=== PATIENT | female | born 1990 | race Caucasian/White ===

== ENCOUNTER 2020-02-10 12:57 | Outpatient (REF) | payer OTHER, SELFPAY ==
[2020-02-10 13:17] LABS: COVID-19 Test Negative (Negative); IDNOW Serial# 55D5AD1C
== END 2020-02-10 12:58 | disposition home or self-care (01) ==
LOC: HO.EMPCOV 12:57
PROVIDERS: Visit Provider Internal Medicine
DX: Z20.828 Contact with and (suspected) exposure to other viral communicable diseases (principal)
CPT/HCPCS: 87635; C9803

== ENCOUNTER 2020-03-14 13:42 | Outpatient (REF) | payer OTHER, SELFPAY ==
[2020-03-14 13:59] LABS: COVID-19 Test Negative (Negative)
== END 2020-03-14 13:43 | disposition home or self-care (01) ==
LOC: HO.EMPCOV 13:42
PROVIDERS: PCP Nurse Practitioner Family; Visit Provider Internal Medicine
DX: Z20.828 Contact with and (suspected) exposure to other viral communicable diseases (principal)
CPT/HCPCS: 87635; C9803

== ENCOUNTER 2020-08-25 12:52 | Emergency (ER) | payer OTHER, SELFPAY ==
--- NOTE | ~2020-08-25 | XR_ITS ---
EXAMINATION: XR ANKLE, LEFT CLINICAL INFORMATION: Injury, pain and swelling. COMPARISON: None TECHNIQUE: AP, lateral, and mortise views of the left ankle. FINDINGS: There is lateral malleolar soft tissue swelling without any visible acute fracture, dislocation or subluxation. The ankle mortise and subtalar joints are normal. There is a calcaneal heel tiny spur. XR/XR ankle LT min 3V IMPRESSION: Wall calcaneal heel tiny spur. No acute fracture or dislocation. Moderate lateral malleolar soft tissue swelling suggestive of ligamentous injury.
[2020-08-25 13:35] VITALS: BP 129/83; PULSE 98; RESP 18; TEMP 37.1; O2SAT 96; BMI 34.0
--- NOTE | 2020-08-25 13:47 | ED_ITS ---
HPI - Extremity Injury (Lower) General Chief Complaint: Extremity Injury, Lower Stated Complaint: ankle injury Time Seen by Provider: 08/25/20 13:40 Source: patient Mode of arrival: ambulatory Limitations: no limitations History of Present Illness HPI Narrative: Patient is a 29-year-old female with no significant past medical history who injured her left ankle while walking on a treadmill. This occurred just prior to arrival. Patient is using ice with some relief. Patient was able to ambulate immediately after the accident but with pain. She is able to use will lightly extend and flex the ankle but with pain. Patient also complaining of swelling and bruising. Denies any other injuries, she did not fall and hit her head. Related Data Home Medications Medication Instructions Recorded Confirmed loratadine 10 mg tablet 10 mg PO DAILY 07/30/20 omeprazole magnesium 20 mg 20 mg PO DAILY 07/30/20 tablet,delayed release Previous Rx's Medication Instructions Recorded erythromycin 5 mg/gram (0.5 %) eye 1 appl OPHTHALMIC (EYE) QID 7 Days 07/30/20 ointment #3.5 g Allergies Allergy/AdvReac Type Severity Reaction Status Date / Time sulfadiazine Allergy Unknown rash Verified 05/07/19 00:00 No Known Allergies Allergy Unverified 12/08/19 16:03 Review of Systems Review of Systems: Yes all other systems are reviewed and are negative FORMERLY [facility] Past Medical History Medical History Hydronephrosis of right kidney Surgical History History of appendectomy History of mandibular surgery Family History Family History Father Liver cancer Mother Lung cancer Social History Social History Advance Directives: No Advance Directives Information Provided: No Patient : No Physical Exam Vital Signs: Vital Signs: Last Vital Signs Temp 98.8 F 08/25/20 13:35 Pulse 98 08/25/20 13:35 Resp 18 08/25/20 13:35 BP 129/83 08/25/20 13:35 Pulse Ox 96 08/25/20 13:35 Body Mass Index 34.0 Const: General: cooperative, healthy appearing, comfortable and no acute distress Nutritional Appearance: average body habitus Orientation/consciousness: patient oriented x3 Limitations: no limitations HENMT: Head: Yes normal to inspection, Yes normocephalic and Yes atraumatic Eyes: General: appearance normal, both eyes and all related structures Resp: Effort & Inspection: normal respiratory effort and able to speak in c omplete sentences Neuro: General: patient oriented x3 Extrem: Ankle/foot/toe images: 1. Edema lateral malleolus, TTP posterior lateral malleolus. Ecchymosis lateral malleolus Course Course Course Narrative: Patient is a 29-year-old female with no significant past medical history who injured her left ankle while walking on a treadmill. VSS. Physical exam revealed edema left lateral malleolus and tenderness to palpation of left lateral posterior malleolus. Will get ankle x-ray. Will give pain co ntrol, Motrin. Reevaluation(s) Reevaluation #1: XR/XR ankle LT min 3V IMPRESSION: Wall calcaneal heel tiny spur. No acute fracture or dislocation. Moderate lateral malleolar soft tissue swelling suggestive of ligamentous injury. Will wrap ankle and discharge with ortho follow up. Time: 14:04 MDM - Extremity Injury (Lower) Medical Records Attestation: I reviewed the patient's medical records. Imaging Data ankle x-ray left: Attestation: I personally reviewed and interpreted this imaging study as follows: My impression: Lateral malleolus sprain Radiologist's impression: [address] [address]HSxw ReportSigned Patient: Adrienne Moore EMR#: [id number]: [id number] Acct:[id number]/Sex: 29 / FADM Date: 08/25/20Loc: [email or web address] Dr: Ordering Physician: Alyssa Parra PA-C Date of Service: 08/25/20 Procedure(s): XR ankle LT min 3V Accession Number(s): [id number] cc: Alyssa Parra PA-C~ EXAMINATION: XR ANKLE, LEFT CLINICAL INFORMATION: Injury, pain and swelling. COMPARISON: None TECHNIQUE: AP, lateral, and mortise views of the left ankle. FINDINGS: There is lateral malleolar soft tissue swelling without any visible acute fracture, dislocation or subluxation. The ankle mortise and subtalar joints are normal. There is a calcaneal heel tiny spur. XR/XR ankle LT min 3V IMPRESSION: Wall calcaneal heel tiny spur. No acute fracture or dislocation. Moderate lateral malleolar soft tissue swelling suggestive of ligamentous injury. Dictated By:BANG GALLEGO MDSigned By:<Electronically signed by BANG GALLEGO MD in OV>08/25/20 1357 DD/ 1354TD/TT: Manager Endoscopy: [facility] [place] Discharge Plan Discharge Clinical Impression: Left ankle sprain Qualifiers: Encounter type: initial encounter Involved ligament of ankle: calcaneofibular ligament Qualified Code(s): S93.412A - Sprain of calcaneofibular ligament of left ankle, initial encounter Patient Disposition: Home, Self-Care Instructions: Ankle Sprain (ED) Additional Instructions: Please be sure to ice your ankle several times per day. You can also use ibuprofen for pain control, you may add in acetaminophen if necessary. Please be sure to spread out the doses of each medication by 3 hours. Please be sure to follow-up with your primary care doctor or an orthopedic doctor, I have attached our orthopedic doctor office information below. Prescriptions: No Action erythromycin 5 mg/gram (0.5 %) ointment 1 appl ophthalmic (eye) QID 7 Days Qty: 3.5 RF: 0 loratadine [Claritin] 10 mg tablet 10 mg PO DAILY RF: 0 omeprazole magnesium [Prilosec OTC] 20 mg tablet,delayed release (DR/EC) 20 mg PO DAILY RF: 0 Referrals: Kobe Castro MD [Physician] - 1 week (if not getting better)
[2020-08-25] MEDS: Ibuprofen 600 MG TABLET PO (14:18)
== END 2020-08-25 14:24 | disposition home or self-care (01) ==
PROVIDERS: Emergency Provider Emergency Medicine Emergency Medical Services; PCP Nurse Practitioner Family
DX: S93.412A Sprain of calcaneofibular ligament of left ankle, initial encounter (principal); M25.572 Pain in left ankle and joints of left foot; M25.472 Effusion, left ankle; Y93.A1 Activity, exercise machines primarily for cardiorespiratory conditioning; Y92.9 Unspecified place or not applicable; Y99.9 Unspecified external cause status; Z79.899 Other long term (current) drug therapy
CPT/HCPCS: 73610; 99283

== ENCOUNTER 2020-09-08 11:11 | Outpatient (REF) | payer OTHER, SELFPAY ==
[2020-09-08 13:56] LABS: Alanine Aminotransferase 32 U/L (0-31); Albumin Level 4.6 g/dL (3.5-5.0); Alkaline Phosphatase 83 U/L (39-117); Anion Gap 14 (12-20); Aspartate Amino Transferase 27 U/L (5-31); Bilirubin Total 1.1 mg/dL (0.0-1.0); Blood Urea Nitrogen 13 mg/dL (9-16); Calcium 9.6 mg/dL (8.4-10.2); Carbon Dioxide 25 mmol/L (22-29); Chloride 104 mmol/L (96-108); Cholesterol 157 mg/dL; Estimated Glomerular Filt Rate > 60; Glucose Fasting 82 mg/dL (60-99); HDL Cholesterol 36 mg/dL; LDL Cholesterol Calculated 107 mg/dl; Potassium 4.6 mmol/L (3.3-5.1); Sodium 138 mmol/L (135-145); Total Protein 8.2 g/dL (6.5-8.0); Triglycerides 72 mg/dL
[2020-09-08 14:17] LABS: TSH reflex Free T4 1.25 uIU/mL (0.32-4.0)
== END 2020-09-08 11:12 | disposition home or self-care (01) ==
LOC: HO.HMGCLDS 11:11
PROVIDERS: PCP Nurse Practitioner Family; Visit Provider Nurse Practitioner Family
DX: Z00.00 Encounter for general adult medical examination without abnormal findings (principal)
CPT/HCPCS: 36415; 80053; 80061; 84443

== ENCOUNTER 2020-12-20 14:28 | Outpatient (REF) | payer OTHER, SELFPAY ==
[2020-12-20 16:12] LABS: MANUAL DIFF FLAG NO
[2020-12-20 16:23] LABS: Basophils Percent Auto 0.4 % (0-2); Eosinophils Absolute Auto 0.5 X10*3/uL (0.0-0.4); Eosinophils Percent Auto 4.3 % (0-4); Hematocrit 39.3 % (37-47); Hemoglobin 13.5 g/dl (12.0-16.0); Imm Gran Abs Auto 0.04 X10*3/uL (0.00-0.03); Imm Gran Pct Auto 0.4 % (0.0-0.4); Lymphocytes Absolute Auto 2.7 X10*3/uL (1.2-4.9); Lymphocytes Percent Auto 25.4 % (20-40); Mean Corpuscular HGB Conc 34.4 g/dl (31.0-35.0); Mean Corpuscular Volume 87.3 fL (80-98); Monocytes Absolute Auto 0.8 X10*3/uL (0.1-1.2); Monocytes Percent Auto 7.8 % (2-11); Neutrophils Absolute Auto 6.6 X10*3/uL (2.0-8.3); Neutrophils Percent Auto 61.7 % (45-73); Platelet Count 237 X10*3/uL (160-400); Red Cell Distribution Width 12.8 % (11.0-16.0); White Blood Count 10.7 X10*3/uL (4.8-10.8)
[2020-12-20 16:49] LABS: Alanine Aminotransferase 21 U/L (0-31); Albumin Level 4.4 g/dL (3.5-5.0); Alkaline Phosphatase 72 U/L (39-117); Anion Gap 12 (12-20); Aspartate Amino Transferase 17 U/L (5-31); Bilirubin Total 0.4 mg/dL (0.0-1.0); Blood Urea Nitrogen 13 mg/dL (9-16); Calcium 9.3 mg/dL (8.4-10.2); Carbon Dioxide 25 mmol/L (22-29); Chloride 105 mmol/L (96-108); Estimated Glomerular Filt Rate > 60; Glucose Random 80 mg/dL (60-115); Lipase 70 U/L (8-78); Potassium 4.1 mmol/L (3.3-5.1); Sodium 138 mmol/L (135-145)
[2020-12-20 17:10] LABS: TSH reflex Free T4 2.59 uIU/mL (0.32-4.0)
== END 2020-12-20 14:29 | disposition home or self-care (01) ==
LOC: HO.HMGCLDS 14:28
PROVIDERS: PCP Nurse Practitioner Family; Visit Provider Nurse Practitioner Family
DX: R10.13 Epigastric pain (principal); R00.2 Palpitations
CPT/HCPCS: 36415; 80053; 83690; 84443; 85025

== ENCOUNTER 2020-12-24 18:36 | Outpatient (REF) | payer OTHER, SELFPAY ==
[2020-12-24 19:14] LABS: COVID-19 Test Negative (Negative)
== END 2020-12-24 18:37 | disposition home or self-care (01) ==
LOC: HO.LAB 18:36
PROVIDERS: PCP Nurse Practitioner Family; Visit Provider Internal Medicine
DX: Z20.822 Contact with and (suspected) exposure to COVID-19 (principal)
CPT/HCPCS: 36415; 87635

== ENCOUNTER 2020-12-29 18:59 | Outpatient (REF) | payer OTHER, SELFPAY ==
[2020-12-30 08:19] LABS: OBS Int Ctl Valid YES
[2020-12-30 08:20] LABS: OBS1 NEGATIVE (NEGATIVE); OBS2 NEGATIVE (NEGATIVE); OBS3 NEGATIVE (NEGATIVE)
== END 2020-12-29 19:00 | disposition home or self-care (01) ==
LOC: HO.LNP 18:59
PROVIDERS: Visit Provider Nurse Practitioner Family
DX: R10.13 Epigastric pain (principal)
CPT/HCPCS: 82270; 87338

== ENCOUNTER 2020-12-29 19:01 | Outpatient (REF) | payer OTHER, SELFPAY | END 2020-12-29 19:02 | disposition home or self-care (01) | LOC: HO.LNP 19:01 | PROVIDERS: Visit Provider Nurse Practitioner Family | DX: Z13.89 Encounter for screening for other disorder (principal) ==

== ENCOUNTER → 2021-01-25 13:57 | Outpatient (REF) | payer OTHER, SELFPAY ==
--- NOTE | 2021-01-25 14:05 | ECG_ITS ---
Hook-up date: 2021-01-25 14:16:00 Duration: 47:59:00 Test Indications: PALPITATIONS Medications: 386177 QRS complexes 1 Ventricular ectopics which represent <1 % of total QRS comp. 2 Supraventricular ectopics which represent <1 % of total QRS comp. * Paced QRS complexs which represent % of total QRS comp. VENTRICULAR ECTOPY 1 Isolated 0 Bigeminal Cycles 0 Couplets 0 Runs 0 Beats in Runs * Beats LONGEST at * BPM at :: -- * Beats FASTEST at * BPM at :: -- SUPRAVENTRICULAR ECTOPY 2 Isolated 0 Couplets 0 Runs 0 Beats in Runs * Beats LONGEST at * BPM at :: -- * Beats FASTEST at * BPM at :: -- HEART RATES 44 MIN at 06:21:40 2021-01-27 68 AVG 148 MAX at 13:13:43 2021-01-27 LONGEST RR 1.5040 secs at 07:55:00 2021-01-27 S-T LEVELS Channel 1 - 128 mm at 14:16:00 2021-01-25 - 128 mm at 14:16:00 2021-01-25 Channel 2 - 128 mm at 14:16:00 2021-01-25 - 128 mm at 14:16:00 2021-01-25 Channel 3 - 128 mm at 03:33:51 -- - 128 mm at 03:33:51 Basic rhythm Normal sinus rhythm No long pause or profound bradycardia Frequent Sinus bradycardia , 34 % of time HR < 60 bpm No dangerous dysrhythm periods Patient reported symptoms correlated with NSR Referred By: Yair Aguilera Overread By: CASSIA XIAO MD
== END ==
LOC: HO.CARD 13:57
PROVIDERS: Visit Provider Nurse Practitioner Family
DX: R00.2 Palpitations (principal)
CPT/HCPCS: 93225; 93226

== ENCOUNTER 2021-09-21 08:28 | Outpatient (REF) | payer OTHER, SELFPAY | END 2021-09-21 08:29 | disposition home or self-care (01) | LOC: HO.LAB 08:28 | PROVIDERS: PCP Nurse Practitioner Family; Visit Provider Nurse Practitioner Family | DX: Z13.89 Encounter for screening for other disorder (principal) ==

== ENCOUNTER 2021-09-27 08:34 | Outpatient (REF) | payer OTHER, SELFPAY ==
[2021-09-27 08:57] LABS: MANUAL DIFF FLAG NO
[2021-09-27 09:00] LABS: Basophils Percent Auto 0.3 % (0-2); Eosinophils Absolute Auto 0.1 X10*3/uL (0.0-0.4); Eosinophils Percent Auto 1.4 % (0-4); Hematocrit 38.1 % (37.0-47.0); Imm Gran Abs Auto 0.03 X10*3/uL (0.00-0.03); Imm Gran Pct Auto 0.3 % (0.0-0.4); Lymphocytes Absolute Auto 2.3 X10*3/uL (1.2-4.9); Lymphocytes Percent Auto 24.4 % (20-40); Mean Corpuscular HGB Conc 34.1 g/dl (31.0-35.0); Mean Corpuscular Volume 87.8 fL (80.0-98.0); Mean Platelet Volume 10.1 fL (9.4-12.3); Monocytes Absolute Auto 0.5 X10*3/uL (0.1-1.2); Monocytes Percent Auto 5.8 % (2-11); Neutrophils Absolute Auto 6.2 x10*3/uL (2.0-8.3); Neutrophils Percent Auto 67.8 % (45-73); Platelet Count 217 X10*3/uL (160-400); Red Blood Count 4.34 X10*6/uL (4.20-5.50); White Blood Count 9.2 X10*3/uL (4.8-10.8)
[2021-09-27 09:25] LABS: Alanine Aminotransferase 24 U/L (0-31); Albumin Level 4.3 g/dL (3.5-5.0); Alkaline Phosphatase 70 U/L (39-117); Anion Gap 11 (12-20); Aspartate Amino Transferase 21 U/L (5-31); Bilirubin Total 0.5 mg/dL (0.0-1.0); Blood Urea Nitrogen 15 mg/dL (9-16); Calcium 9.3 mg/dL (8.4-10.2); Carbon Dioxide 26 mmol/L (22-29); Chloride 104 mmol/L (96-108); Estimated Glomerular Filt Rate > 60; Glucose Random 115 mg/dL (60-115); Sodium 137 mmol/L (135-145); Total Protein 7.8 g/dL (6.5-8.0)
[2021-09-27 09:46] LABS: TSH reflex Free T4 1.15 uIU/mL (0.32-4.0)
[2021-09-27 10:28] LABS: Cortisol Random 7.9 ug/dL
[2021-10-01 15:26] LABS: Adrenocorticotropic Hormone 22 pg/mL (6-50)
[2021-10-01 18:22] LABS: Glutamic acid decarboxylase Ab <5 IU/mL (<5)
[2021-10-05 00:06] LABS: 21 Hydroxylase Antibody NEGATIVE (NEGATIVE)
[2021-10-09 16:52] LABS: Aldosterone/Renin Ratio 1.8 Ratio (0.9-28.9); Plasma Renin Activity 3.28 ng/mL/h (0.25-5.82)
== END 2021-09-27 08:35 | disposition home or self-care (01) ==
LOC: HO.LAB 08:34
PROVIDERS: PCP Nurse Practitioner Family; Visit Provider Nurse Practitioner Family
DX: E27.40 Unspecified adrenocortical insufficiency (principal)
CPT/HCPCS: 36415; 80053; 82024; 82088; 82533; 83519; 84443; 85025; 86341

== ENCOUNTER 2022-02-16 11:57 | Emergency (ER) | payer OTHER, SELFPAY ==
[2022-02-16 12:00] VITALS: PULSE 78; RESP 18; BMI 30.2
--- NOTE | 2022-02-16 12:03 | ED_ITS ---
HPI - Medical Clearance General Chief complaint: Body Fluid Exposure Stated complaint: blood exposure at work Time Seen by Provider: 02/16/22 12:03 Source: patient Mode of arrival: ambulatory Limitations: no limitations History of Present Illness HPI Narrative: Patient is a 31 year old assigned female at with a history of kidney stones presenting to the emergency department today after a blood exposure. Patient states that she was performing continual bladder irrigation when blood splashed up and into her eye. Patient states that she would like exposure screening but does not want any prophylaxis at this time. Patient denies any dizziness, lightheadedness, abdominal pain, nausea, vomiting, fever, chills, blurry vision, double vision, loss of vision, chest pain, difficulty breathing, shortness of breath, back pain, night sweats, pain with urination, increased urinary frequency, increased urinary urgency, blood in her urine or stool, syncope or a near syncopal episode, recent trauma or falls, bowel incontinence, bladder incontinence, bowel retention, bladder retention, or any other complaints at this time. Place: work Associated Symptoms: denies other symptoms Treatments Prior to Arrival: other (eye irrigation) Related Information Home Medications Medication Instructions Recorded Confirmed Bacillus coagulans 800 million cell PO 08/27/20 09/17/21 cell tablet (Digestive Advantage Probiotics-Prebiotic) multivitamin,tx-minerals 1 cap PO DAILY 08/27/20 09/17/21 (Multi-Vitamin HP/Minerals capsule) Allergies Allergy/AdvReac Type Severity Reaction Status Date / Time sulfadiazine Allergy Unknown rash Verified 11/26/21 15:09 Review of Systems Constitutional: Constitutional: Reports no additional constitutional complaints, Denies chills, Denies fever(s) and Denies night sweats Eyes: Eyes: Reports no additional eye complaints, Denies blurry vision, Denies change in vision, Denies diplopia, Denies eye discharge, Denies loss of vision and Denies eye pain ENT: Denies dizziness Cardiovascular: Cardiovascular: Reports no additional cardiovascular complaints, Denies chest pain, Denies lightheadedness, Denies Loss of Consciousness and Denies dyspnea Respiratory: Respiratory: Reports no additional respiratory complaints and Denies dyspnea Gastrointestinal: Gastrointestinal: Reports no additional gastrointestinal complaints, Denies abdominal pain, Denies melena, Denies hematochezia, Denies change in bowel habits and Denies change in stool character Genitourinary: Genitourinary: Denies hematuria, Denies urinary frequency, Denies dysuria, Denies urinary incontinence, Denies urinary hesitancy and Denies urinary urgency Musculoskeletal: Musculoskeletal: Reports no additional musculoskeletal complaints, Denies numbness and Denies tingling Neurologic: Denies dizziness, Denies loss of vision, Denies numbness and Denies tingling Psychiatric: Psychiatric: Reports no additional psychiatric complaints Endocrine: Endocrine: Reports no additional endocrine complaints Hematologic/Lymphatic: Hematologic/Lymphatic: Reports no additional hematologic/lymphatic complaints Allergic/Immunologic: Allergic/Immunologic: Reports no additional allergic/immunologic complaints FORMERLY [facility] Past Medical History Attestation statement: The following information was validated with the patient. Source: old records reviewed Medical History Hydronephrosis of right kidney Surgical History History of appendectomy History of mandibular surgery Family History Family History Father Liver cancer Mother Lung cancer Mental health disorder Paternal Uncle Substance use disorder Social History Social History Housing: Apartment Alcohol intake: current Alcohol intake frequency: a few times a month Patient Tobacco Use Status: Former Tobacco user e-Cigarette/Vaping Use: Never Used Second Hand Smoke Exposure: No Advance Directives: No Advance Directives Information Provided: No service: No Current occupational status: employed Current occupation: [employer] – [place] Current occupational exposures/hazards: Yes Cognitive needs: No Hearing needs: No Vision needs: No Physical Exam Vital Signs: Vital Signs: Last Vital Signs Pulse 78 02/16/22 12:00 Resp 18 02/16/22 12:00 BMI result Body Mass Index 30.2 Const: General: cooperative, no acute distress, alert and awake Nutritional Appearance: well nourished Orientation/consciousness: patient oriented x3 Limitations: no limitations HEENT: Head: Yes normal to inspection and Yes atraumatic Ears: hearing grossly normal bilaterally and external ears normal General nose exam: Normal external nose present, no nasal discharge noted and no epistaxis Face and sinus: Yes normal facial exam, No abrasion and No laceration Mouth: Normal oral and palatal mucosa present, no drooling and no muffled voice Eyes: General: appearance normal, both eyes and all related structures Periorbital: periorbital findings normal Eyelids: Yes eyelids normal Conjunctivae: conjunctivae normal Pupils: Equal, round and reactive pupils present EOM: EOMs intact bilaterally Neck: Neck: Yes normal visual inspection, Yes full ROM and Yes no lymphadenopathy Chest: Chest palpation & inspection: normal inspection of the chest Resp: Effort & Inspection: normal respiratory effort and able to speak in complete sentences Auscultation: clear to auscultation bilaterally Cardio: Rate: regular rate Rhythm: regular rhythm GI: Inspection: Yes normal to inspection Neuro: General: patient oriented x3 and moves all extremities Cranial nerves: Yes Equal, round and reactive pupils present Cognition (Neuro): normal cognition Motor exam (neuro): 5/5 motor strength present throughout Sensory Exam: Normal double simultaneous stimulation for sensation Coordination: [id number] test normal Extrem: General: Yes normal to inspection, Yes full ROM and Yes capillary refill normal Psych: Appearance: grossly normal Mental Status: mental status grossly normal Affect: normal affect Attitude: cooperative Thought process: Normal thought process present Thought content: Normal thought content present Insight: Good insight present (Psych) MDM - Medical Clearance MDM Narrative Medical decision making narrative: Patient is a 31 year old assigned female at with a history of kidney stones presenting to the emergency department today after an exposure. Patient's physical exam was unremarkable. Patient's blood work is pending. I explained my physical exam findings to the patient. I answered all questions asked by the patient. I stressed the importance of the patient taking her medication as prescribed. I stressed the importance of the patient following up with her primary care provider and work connection. I stressed the importance of the patient returning to the emergency department immediately if her symptoms were to worsen or if she were to develop any dizziness, shortness of breath, difficulty breathing, chest pain, blurry vision, loss of vision, nausea, vomiting, abdominal pain, fever, chills, back pain, or any other complaints. Patient verbalized agreement and understanding with this treatment plan and discharge. Medical Records Attestation: I reviewed the patient's medical records. Discharge Plan Discharge Clinical Impression: Exposure to blood Patient Disposition: Home, Self-Care Instructions: Body Substance Exposure (ED) Additional Instructions: Follow up with your primary care provider and work connection. Return to the emergency department immediately if your symptoms worsen or if you develop any dizziness, shortness of breath, difficulty breathing, chest pain, blurry vision, loss of vision, nausea, vomiting, abdominal pain, fever, chills, back pain, or any other complaints. Prescriptions: No Action Digestive Advantage Probio-Pre 800 million cell tablet PO Multi-Vitamin HP/Minerals Capsule 1 cap PO DAILY Referrals: [facility] [Provider Group] Yair Aguilera FNP-ANKIT [Primary Care Provider] - Interventions: ED Discharge Assessment Last Done: 02/16/22 12:17 Discharge Date/Time: 02/16/22 12:18 Print Language: Lithuanian
[2022-02-16 12:46] LABS: Alanine Aminotransferase 24 U/L (0-31); Albumin Level 4.3 g/dL (3.5-5.0); Alkaline Phosphatase 69 U/L (39-117); Aspartate Amino Transferase 21 U/L (5-31); Bilirubin Direct < 0.2 mg/dL (0.0-0.5); Bilirubin Total 0.4 mg/dL (0.0-1.0)
[2022-02-17 09:46] LABS: HBc Num1 0.29 S/CO (0.00-0.79); HIV AB/AG Nonreactive (Nonreactive); Hepatitis A Antibody IgM 0.18 Index (0-0.79); Hepatitis B Core Antibody Nonreactive (Nonreactive); ~HepC Num1 0.13 S/CO (0.00-0.79); ~Hepatitis A Antibody IgM Nonreactive (Nonreactive); ~Hepatitis B Surface Antibody REACTIVE (Nonreactive); ~Hepatitis C Antibody Nonreactive (Nonreactive)
[2022-02-17 09:48] LABS: HBsAGNum1 0.41 S/CO (0.00-0.99); Hepatitis B Surface Antigen Negative (Negative)
== END 2022-02-16 12:18 | disposition home or self-care (01) ==
PROVIDERS: Physician Assistant Medical; Emergency Provider Emergency Medicine; PCP Nurse Practitioner Family
DX: Z20.9 Contact with and (suspected) exposure to unspecified communicable disease (principal); Z79.899 Other long term (current) drug therapy
CPT/HCPCS: 36415; 80076; 86704; 86706; 86709; 86803; 87340; 87389; 99282; 99283

== ENCOUNTER → 2022-02-20 15:46 | Outpatient (BNVA) | payer OTHER, SELFPAY | PROVIDERS: PCP Nurse Practitioner Family | DX: Z13.89 Encounter for screening for other disorder (principal) | CPT/HCPCS: 99211; 99213 ==

== ENCOUNTER → 2022-04-18 13:46 | Outpatient (BNVA) | payer OTHER, SELFPAY | PROVIDERS: PCP Nurse Practitioner Family | DX: Z13.89 Encounter for screening for other disorder (principal) | CPT/HCPCS: 36415; 84450; 84460; 87389; 99211 ==

== ENCOUNTER → 2022-06-24 12:19 | Outpatient (BNVA) | payer OTHER, SELFPAY | PROVIDERS: PCP Nurse Practitioner Family | DX: Z13.89 Encounter for screening for other disorder (principal) | CPT/HCPCS: 36415; 84450; 84460; 86803; 87389; 99211 ==

== ENCOUNTER 2022-07-12 10:24 | Outpatient (REF) | payer OTHER, SELFPAY ==
[2022-07-12 11:37] LABS: Alanine Aminotransferase 17 U/L (0-31); Albumin Level 4.3 g/dL (3.5-5.0); Alkaline Phosphatase 73 U/L (39-117); Anion Gap 12 (12-20); Aspartate Amino Transferase 16 U/L (5-31); Bilirubin Total 0.8 mg/dL (0.0-1.0); Blood Urea Nitrogen 12 mg/dL (9-16); Calcium 9.4 mg/dL (8.4-10.2); Carbon Dioxide 25 mmol/L (22-29); Chloride 107 mmol/L (96-108); Estimated Glomerular Filt Rate > 60; Glucose Random 90 mg/dL (60-115); Potassium 4.5 mmol/L (3.3-5.1); Sodium 139 mmol/L (135-145); Total Protein 7.8 g/dL (6.5-8.0)
[2022-07-12 11:53] LABS: TSH reflex Free T4 1.89 uIU/mL (0.32-4.0)
== END 2022-07-12 10:25 | disposition home or self-care (01) ==
LOC: HO.HMGCLDS 10:24
PROVIDERS: PCP Nurse Practitioner Family; Visit Provider Physician Assistant
DX: L29.8 Other pruritus (principal); T50.905A Adverse effect of unspecified drugs, medicaments and biological substances, initial encounter; Z77.21 Contact with and (suspected) exposure to potentially hazardous body fluids; R20.2 Paresthesia of skin; R60.9 Edema, unspecified
CPT/HCPCS: 36415; 80053; 84443

== ENCOUNTER 2022-10-23 15:25 | Outpatient (AMB) | payer OTHER, SELFPAY ==
[2022-10-23 15:31] VITALS: BP 130/84; PULSE 101; O2SAT 98; BMI 35.9
--- NOTE | 2022-10-23 15:31 | A.OFFPC_ITS ---
Vital Signs 10/23/22 15:31 Height 5 ft 1 in Weight 190 lb 2 oz BMI 35.9 BP 130/84 Blood Pressure Location Rt brachial Position Sitting Pulse 101 H Pulse Source Pulse Oximeter Pulse Oximetry (%) 98 Oxygen Delivery Method Room Air Intake Visit Reasons: Anxiety/Insomnia Allergies amoxicillin [From Augmentin] Allergy (Intermediate, Verified 10/23/22 17:19) Itching clavulanic acid [From Augmentin] Allergy (Intermediate, Verified 10/23/22 17:19) Itching sulfadiazine Allergy (Unknown, Verified 10/23/22 17:19) rash Medication List - Last Reconciled 10/23/22 by JORGE Meadows-ANKIT Bacillus coagulans (Digestive Advantage Probiotics-Prebiotic) cells PO multivitamin,tx-minerals (Multi-Vitamin HP/Minerals capsule) 1 cap PO DAILY Tobacco use date assessed: 10/23/22 Dental Screening Dental Screen Date: 10/23/22 Did you have a dental visit in the last 12 months?: Yes Did you have a dental problem in the last 6 months where you did not have access to dental care?: No Was dental information given to patient?: Patient has dentist HPI Anxiety/Insomnia HPI Details Pt reports increased anxiety and insomnia. She reports recently finding out that her is cheating on her. Her and his new partner work in the same organization as pt. Pt needs FMLA filled out to be out of work starting 10/22 through 12/20, will fill this out. She is currently seeing a therapist. Will send short duration of ativan. Educated pt on risk of addiction, this is not a long-term med. Pt understands that they can not drive while taking this med, share this med, and to only take as prescribed. Denies any SI and HI. Pt reports that her family is very supportive. [facility]LY [facility] Medical History Hydronephrosis of right kidney Surgical History History of appendectomy History of mandibular surgery Family History Father Liver cancer Mother Lung cancer Mental health disorder Paternal Uncle Substance use disorder Social History Housing: Apartment Alcohol intake: current Alcohol intake frequency: a few times a month Patient Tobacco Use Status: Former Tobacco user e-Cigarette/Vaping Use: Never Used Second Hand Smoke Exposure: No service: No Current occupational status: employed Current occupation: [employer] [place] Current occupational exposures/hazards: Yes Cognitive needs: No Hearing needs: No Vision needs: No Questionnaire Thrive Questionnaire Date Thrive assessed: 11/26/21 ILSA-7 AMB Questionnaire ILSA-7 Date ILSA - 7 assessed: 11/26/21 Source: Developed by Drs. Osei Hackett, Bina Killian, Sudhir Montgomery and colleagues, with an educational km from [employer]. Review of Systems Const Reports as per HPI Physical exam (Primary Care) Vital Signs: Last Vital Signs Pulse 101 H 10/23/22 15:31 BP 130/84 10/23/22 15:31 Pulse Ox 98 10/23/22 15:31 Oxygen Delivery Method Room Air 10/23/22 15:31 BMI result Body Mass Index 35.9 Tobacco/Smoking Status: Tobacco use Status Tobacco use date assessed 10/23/22 10/23/22 15:36 Patient Tobacco Use Status Former Tobacco user 10/23/22 15:36 e-Cigarette/Vaping Use Never Used 10/23/22 15:36 Thrive Assessment: Date of Thrive Assessment Date Thrive assessed 11/26/21 10/23/22 15:36 Const General: cooperative Nutritional Appearance: obese Orientation/consciousness: patient oriented x3 Resp Effort & Inspection: normal respiratory effort Auscultation: clear to auscultation bilaterally Cardio Rate: regular rate Rhythm: regular rhythm Heart sounds: S1 normal heart sound present and S2 normal heart sound present Neuro General: patient oriented x3 Psych Appearance: grossly normal Mental Status: mental status grossly normal Speech and movement: Normal speech and movement present Affect: normal affect Attitude: cooperative Thought process: Normal thought process present Thought content: Normal thought content present Insight: Good insight present (Psych) Judgement: Good judgement present (Psych) Assessment and Plan Assessment & Plan (1) Anxiety and depression: Code(s): F41.9 - Anxiety disorder, unspecified; F32.A - Depression, unspecified Plan The patient agreed to the use of a medical diagnostic radiographer for this encounter. Scribed for JORGE Rivas-ANKIT by Mary Schultz, medical diagnostic radiographer, on 10/23/2022 at 15:50 EST. Medications: New lorazepam 0.5 mg PO BID PRN 40 tabs 0RF anxiety 20 days Coding Level of Care Code Est Pt Level 3 (82725) Diagnoses Anxiety and depression F41.9; F32.A
== END 2022-10-23 15:58 | disposition home or self-care (01) ==
PROVIDERS: PCP Nurse Practitioner Family; Visit Provider Nurse Practitioner Family
DX: F41.9 Anxiety disorder, unspecified (principal); F32.A Depression, unspecified
CPT/HCPCS: 99213

== ENCOUNTER 2022-11-05 13:25 | Outpatient (REF) | payer OTHER, SELFPAY ==
[2022-11-06 05:19] LABS: HBS Num1 321.91 mIU/mL (0-7.99); HBsAGNum1 0.39 S/CO (0.00-0.99); HIV AB/AG Nonreactive (Nonreactive); HIV Num 1 0.08 S/CO (0.00-0.99); Hepatitis B Surface Antigen Negative (Negative); ~HepC Num1 0.08 S/CO (0.00-0.79); ~Hepatitis B Surface Antibody REACTIVE (Nonreactive); ~Hepatitis C Antibody Nonreactive (Nonreactive)
[2022-11-07 04:12] LABS: Syphilis Screen Nonreactive (Nonreactive)
== END 2022-11-05 13:26 | disposition home or self-care (01) ==
LOC: HO.LAB 13:25
PROVIDERS: PCP Nurse Practitioner Family; Visit Provider Obstetrics & Gynecology
DX: Z20.2 Contact with and (suspected) exposure to infections with a predominantly sexual mode of transmission (principal)
CPT/HCPCS: 36415; 86706; 86780; 86803; 87340; 87389

== ENCOUNTER 2022-11-27 10:54 | Outpatient (AMB) | payer OTHER, SELFPAY ==
[2022-11-27 11:02] VITALS: BP 138/90; PULSE 93; O2SAT 98; BMI 35.2
--- NOTE | 2022-11-27 11:02 | A.OFFPC_ITS ---
Vital Signs 11/27/22 11:02 Height 5 ft 1 in Weight 186 lb 2 oz BMI 35.2 BP 138/90 H Blood Pressure Location Lt brachial Position Sitting Pulse 93 Pulse Source Pulse Oximeter Pulse Oximetry (%) 98 Oxygen Delivery Method Room Air Intake Visit Reasons: PE Allergies amoxicillin [From Augmentin] Allergy (Intermediate, Verified 11/27/22 11:04) Itching clavulanic acid [From Augmentin] Allergy (Intermediate, Verified 11/27/22 11:04) Itching sulfadiazine Allergy (Unknown, Verified 11/27/22 11:04) rash Medication List - Last Reconciled 11/27/22 by AKOSUA Meadows Bacillus coagulans (Digestive Advantage Probiotics-Prebiotic) cells PO lorazepam 0.5 mg PO BID PRN 20 days multivitamin,tx-minerals (Multi-Vitamin HP/Minerals capsule) 1 cap PO DAILY Tobacco use date assessed: 11/27/22 Dental Screening Dental Screen Date: 11/27/22 Did you have a dental visit in the last 12 months?: Yes Did you have a dental problem in the last 6 months where you did not have access to dental care?: No Was dental information given to patient?: Patient has dentist HPI PE HPI Details Pt is here for a PE. Will order labs. 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 Denies chest pain, shortness of breath, headache, dizziness, and blurred vision. [facility] Medical History Hydronephrosis of right kidney Surgical History History of appendectomy History of mandibular surgery Family History Father Liver cancer Mother Lung cancer Mental health disorder Paternal Uncle Substance use disorder Social History Housing: Apartment Alcohol intake: current Alcohol intake frequency: a few times a month Patient Tobacco Use Status: Current everyday Tobacco user Cigarettes Per Day: 8 e-Cigarette/Vaping Use: Never Used Second Hand Smoke Exposure: Yes service: No Current occupational status: employed [place] [employer] [place] Current occupational exposures/hazards: Yes Cognitive needs: No Hearing needs: No Vision needs: No Questionnaire Thrive Questionnaire Date Thrive assessed: 11/26/21 ILSA-7 AMB Questionnaire ILSA-7 Date ILSA - 7 assessed: 11/26/21 Source: Developed by Drs. Osei Hackett, Bina Killian, Sudhir Montgomery and colleagues, with an educational km from [employer]. Review of Systems Const Denies chills and Denies fever(s) Eyes Denies blurry vision ENT Denies vertigo, Denies dizziness and Denies sore throat Card Denies chest pain at rest, Denies chest pain with activity, Denies diaphoresis, Denies dyspnea and Denies dyspnea on exertion Resp Denies cough, Denies dyspnea, Denies dyspnea on exertion and Denies wheezing GI Denies abdominal pain, Denies melena, Denies hematochezia, Denies constipation, Denies diarrhea and Denies loose stools Denies hematuria Musc Denies numbness and Denies tingling Skin/Breast Denies lesions Neuro Denies vertigo, Denies dizziness, Denies numbness and Denies tingling Psych Denies anxiety, Denies depression, Denies homicidal ideation, Denies suicidal ideation and Denies other (substance abuse) Aller/Immun Denies wheezing Physical exam (Primary Care) Vital Signs: Last Vital Signs Pulse 93 11/27/22 11:02 BP 138/90 H 11/27/22 11:02 Pulse Ox 98 11/27/22 11:02 Oxygen Delivery Method Room Air 11/27/22 11:02 BMI result Body Mass Index 35.2 Tobacco/Smoking Status: Tobacco use Status Tobacco use date assessed 11/27/22 11/27/22 11:06 Patient Tobacco Use Status Current everyday Tobacco 11/27/22 11:06 e-Cigarette/Vaping Use Never Used 11/27/22 11:06 Thrive Assessment: Date of Thrive Assessment Date Thrive assessed 11/26/21 11/27/22 11:06 Const General: cooperative Nutritional Appearance: well nourished Orientation/consciousness: patient oriented x3 HENMT Head: Yes normal to inspection, Yes normocephalic and Yes atraumatic Ears: TM's normal bilaterally Eyes General: appearance normal, both eyes and all related structures Alignment and Position: alignment normal and position normal Neck Neck: Yes normal visual inspection and Yes no lymphadenopathy Thyroid: Thyroid normal Resp Effort & Inspection: normal respiratory effort Auscultation: clear to auscultation bilaterally Cardio Rate: regular rate Rhythm: regular rhythm Heart sounds: S1 normal heart sound present, S2 normal heart sound present and no murmurs GI Palpation (GI): Soft to palpation and nontender Auscultation: normal bowel sounds Skin Rashes: no rashes Neuro General: patient oriented x3, moves all extremities, no focal motor deficits and deep tendon reflexes 2+ bilaterally Romberg Test: Negative Psych Appearance: grossly normal Mental Status: mental status grossly normal Speech and movement: Normal speech and movement present Affect: normal affect Attitude: cooperative Thought process: Normal thought process present Thought content: Normal thought content present Insight: Good insight present (Psych) Judgement: Good judgement present (Psych) Assessment and Plan Assessment & Plan (1) Physical exam: Code(s): Z. - Encounter for general adult medical examination without abnormal findings Plan: Labs ordered Plan The patient agreed to the use of a medical management specialist for this encounter. Scribed for JORGE Rivas-ANKIT by Mary Schultz medical management specialist, on 11/27/2022 at 11:10 EST. Orders: Orders Complete Blood Count Auto Diff Today Z00.00 - Encounter for general adult medical examination without abnormal findings Comprehensive [place]. Panel Fast Today Z00.00 - Encounter for general adult medical examination without abnormal findings TSH reflex Free T4 Today Z00.00 - Encounter for general adult medical examination without abnormal findings UA CC w/rflx Micro + Cult Today Z00.00 - Encounter for general adult medical examination without abnormal findings Lipid Panel Today Z00.00 - Encounter for general adult medical examination without abnormal findings Coding Level of Care Code Est Pt Prev Care 18-39y(92551) Diagnoses Physical exam Z00.00
== END 2022-11-27 11:16 | disposition home or self-care (01) ==
PROVIDERS: Visit Provider Nurse Practitioner Family
DX: Z00.00 Encounter for general adult medical examination without abnormal findings (principal)
CPT/HCPCS: 99395

== ENCOUNTER 2022-11-27 11:19 | Outpatient (REF) | payer OTHER, SELFPAY ==
[2022-11-27 13:17] LABS: MANUAL DIFF FLAG NO
[2022-11-27 13:45] LABS: Basophils Percent Auto 0.3 % (0-2); Eosinophils Absolute Auto 0.2 X10*3/uL (0.0-0.4); Eosinophils Percent Auto 1.7 % (0-4); Hemoglobin 14.1 g/dl (12.0-16.0); Imm Gran Abs Auto 0.02 X10*3/uL (0.00-0.03); Imm Gran Pct Auto 0.2 % (0.0-0.4); Lymphocytes Percent Auto 21.7 % (20-40); Mean Corpuscular HGB Conc 34.4 g/dl (31.0-35.0); Mean Corpuscular Hemoglobin 30.1 pg (27.0-33.0); Mean Corpuscular Volume 87.6 fL (80.0-98.0); Mean Platelet Volume 11.5 fL (9.4-12.3); Monocytes Absolute Auto 0.5 X10*3/uL (0.1-1.2); Monocytes Percent Auto 5.6 % (2-11); Neutrophils Absolute Auto 6.4 x10*3/uL (2.0-8.3); Neutrophils Percent Auto 70.5 % (45-73); Platelet Count 217 X10*3/uL (160-400); Red Blood Count 4.68 X10*6/uL (4.20-5.50); Red Cell Distribution Width 13.3 % (11.0-16.0); White Blood Count 9.1 X10*3/uL (4.8-10.8)
[2022-11-27 13:48] LABS: Appearance Urine Clear; Color Urine Yellow; Glucose Urine UA Negative (Negative); Leukocyte Esterase Urine Small (1+) (Negative); Nitrite Urine Negative (Negative); UMIC TRIGGER UACC YES; Urine Blood Negative (Negative); Urine Ketones Negative (Negative); Urine Protein Negative (Neg-Trace)
[2022-11-27 13:51] LABS: Bacteria Urine Trace (None Seen); Hyaline Casts Urine 0-2 /LPF (0-2); RBC Urine 0-2 /HPF (0-2); UACC Culture Trigger YES
[2022-11-27 14:07] LABS: Alanine Aminotransferase 24 U/L (0-31); Albumin Level 4.3 g/dL (3.5-5.0); Alkaline Phosphatase 66 U/L (39-117); Anion Gap 12 (12-20); Aspartate Amino Transferase 18 U/L (5-31); Bilirubin Total 0.5 mg/dL (0.0-1.0); Blood Urea Nitrogen 9 mg/dL (9-16); Calcium 9.8 mg/dL (8.4-10.2); Carbon Dioxide 24 mmol/L (22-29); Chloride 105 mmol/L (96-108); Cholesterol 158 mg/dL (<200); Estimated Glomerular Filt Rate > 60; Glucose Fasting 90 mg/dL (60-99); HDL Cholesterol 33 mg/dL (>40); LDL Cholesterol Calculated 103 mg/dL (<100); Sodium 137 mmol/L (135-145); Total Protein 8.3 g/dL (6.5-8.0); Triglycerides 110 mg/dL (<150)
[2022-11-27 14:14] LABS: TSH reflex Free T4 1.39 uIU/mL (0.32-4.0)
== END 2022-11-27 11:20 | disposition home or self-care (01) ==
LOC: HO.HMGCLDS 11:19
PROVIDERS: PCP Nurse Practitioner Family; Visit Provider Nurse Practitioner Family
DX: Z00.00 Encounter for general adult medical examination without abnormal findings (principal); Z20.2 Contact with and (suspected) exposure to infections with a predominantly sexual mode of transmission; R82.90 Unspecified abnormal findings in urine; Z13.220 Encounter for screening for lipoid disorders; Z13.29 Encounter for screening for other suspected endocrine disorder
CPT/HCPCS: 36415; 80053; 80061; 81001; 84443; 85025; 87086

== ENCOUNTER 2023-09-15 09:24 | Outpatient (AMB) | payer OTHER, SELFPAY ==
[2023-09-15 09:50] VITALS: BP 132/82; PULSE 68; TEMP 36.6; O2SAT 98; BMI 35.1
--- NOTE | 2023-09-15 09:50 | MHC.OFFWIV ---
Intake Vital Signs 09/15/23 09:50 Height 5 ft 1 in Weight 186 lb BMI 35.1 BP 132/82 Blood Pressure Location Rt brachial Position Sitting Pulse 68 Pulse Source Pulse Oximeter Temp 97.9 F Temp Source Oral Pulse Oximetry (%) 98 Oxygen Delivery Method Room Air Intake Visit Reasons: EP stomach pain Intake Note: pt is here for stomach pain Patient Tobacco Use Status: Current everyday Tobacco user Allergies amoxicillin [From Augmentin] Allergy (Intermediate, Verified 10/21/23 12:53) Itching clavulanic acid [From Augmentin] Allergy (Intermediate, Verified 10/21/23 12:53) Itching sulfadiazine Allergy (Unknown, Verified 10/21/23 12:53) rash Medication List - Last Reconciled 09/15/23 by Joel Lucas MD Bacillus coagulans (Digestive Advantage Probiotics-Prebiotic) cells PO lorazepam 0.5 mg PO BID PRN 20 days multivitamin,tx-minerals (Multi-Vitamin HP/Minerals capsule) 1 cap PO DAILY Do you need a note to return to daycare/school/sports/work: Yes HPI EP stomach pain HPI Details Patient is a 32-year-old female came today to be evaluated for stomach pain that she has having for the past 2 weeks Patient says that it is more so after eating that she has noticed And she has noticed that it is worse after eating avocado Patient says that she have a history of H pylori infection about 7 years ago when she was treated for that Patient says that it feels like that She has tried Prilosec [id number] which has not helped her. We have talked about keeping a food diary to eliminate foods that are worsening the symptoms I have ordered H pylori stool test with the patient I have also sent pantoprazole 40 mg to be taken once a day on empty stomach And Carafate up to 3 times a day as needed for symptoms Patient is to follow up with the primary care Review system: There is no fever no chills, there is no blood in stools or vomiting There is no chest pain no shortness a breath no rashes Patient is recovering from stye left eye, she is already on erythromycin ointment for that and it is getting better [facility] Medical History Hydronephrosis of right kidney Surgical History History of mandibular surgery History of appendectomy Family History Father Liver cancer Mother Lung cancer Mental health disorder Paternal Uncle Substance use disorder Social History Housing: Apartment Alcohol intake: current Alcohol intake frequency: a few times a month Patient Tobacco Use Status: Former Tobacco user Cigarettes Per Day: 8 e-Cigarette/Vaping Use: Never Used Second Hand Smoke Exposure: Yes service: No Current occupational status: employed Current occupation[place] [employer] [place] Current occupational exposures/hazards: Yes Cognitive needs: No Hearing needs: No Vision needs: No Review of Systems Const Denies chills and Denies fever(s) ENT Denies epistaxis and Denies nasal discharge Card Denies chest pain Resp Denies chest congestion, Denies cough and Denies hemoptysis Skin/Breast Denies rash Neuro Reports no additional complaints Psych Reports no additional complaints Endo Reports no additional complaints Physical Exam Vital Signs: Last Vital Signs Temp 97.9 F 09/15/23 09:50 Pulse 68 09/15/23 09:50 BP 132/82 09/15/23 09:50 Pulse Ox 98 09/15/23 09:50 Oxygen Delivery Method Room Air 09/15/23 09:50 BMI result Body Mass Index 35.1 Const General: cooperative, comfortable and no acute distress Orientation/consciousness: patient oriented x3 HEENT Head: Yes normocephalic Eyes Other: Mild swelling eyelid medial corner of left eye Neck Other: Supple Neck: Yes supple Resp Effort & Inspection: normal respiratory effort, no cough and no stridor GI Other: There is no pain with palpation today, bowel sounds positive Skin General skin exam: turgor normal Neuro Other: Motor sensory intact General: patient oriented x3, tone normal and moves all extremities Psych Other: Normal effect, speech clear Assessment & Plan Assessment & Plan (1) Epigastric pain: Code(s): R10.13 - Epigastric pain (2) Heartburn: Code(s): R12 - Heartburn (3) History of Helicobacter pylori infection: Code(s): Z86.19 - Personal history of other infectious and parasitic diseases (4) Hordeolum externum left eye, unspecified eyelid: Comment: Already taking treatment and is feeling better Code(s): H00.016 - Hordeolum externum left eye, unspecified eyelid Qualifiers: Eyelid: unspecified eyelid Qualified Code(s): H00.016 - Hordeolum externum left eye, unspecified eyelid Plan Patient is a 32-year-old female came today to be evaluated for stomach pain that she has having for the past 2 weeks Patient says that it is more so after eating that she has noticed And she has noticed that it is worse after eating avocado Patient says that she have a history of H pylori infection about 7 years ago when she was treated for that Patient says that it feels like that She has tried Prilosec [id number] which has not helped her. We have talked about keeping a food diary to eliminate foods that are worsening the symptoms I have ordered H pylori stool test with the patient I have also sent pantoprazole 40 mg to be taken once a day on empty stomach And Carafate up to 3 times a day as needed for symptoms Patient is to follow up with the primary care Review system: There is no fever no chills, there is no blood in stools or vomiting There is no chest pain no shortness a breath no rashes Patient is recovering from stye left eye, she is already on erythromycin ointment for that and it is getting better Orders: Orders H pylori Ag Stool 09/15/23 R10.13 - Epigastric pain, R12 - Heartburn, Z86.19 - Personal history of other infectious and parasitic diseases Medications: New pantoprazole DR (Protonix) 40 mg PO DAILY 30 ea 0RF sucralfate (Carafate) swish in mouth and swallow; use after food/drink 5 mL PO TID PRN 150 mL 0RF Stomach pain 10 days Coding Level of Care Code Est Pt Level 4 (12000) Diagnoses Epigastric pain R10.13 Heartburn R12 History of Helicobacter pylori infection Z86.19 Hordeolum externum of left eye, unspecified eyelid H00.016 Eyelid: unspecified eyelid
== END 2023-09-15 10:37 | disposition home or self-care (01) ==
PROVIDERS: PCP Nurse Practitioner Family; Visit Provider Physician Assistant Medical
DX: R10.13 Epigastric pain (principal); R12 Heartburn; Z86.19 Personal history of other infectious and parasitic diseases; H00.016 Hordeolum externum left eye, unspecified eyelid
CPT/HCPCS: 99214

== ENCOUNTER 2023-09-23 09:50 | Outpatient (REF) | payer OTHER, SELFPAY | END 2023-09-23 09:51 | disposition home or self-care (01) | LOC: HO.HMGCLNP 09:50 | PROVIDERS: PCP Nurse Practitioner Family; Visit Provider Internal Medicine | DX: R10.13 Epigastric pain (principal); R12 Heartburn; Z86.19 Personal history of other infectious and parasitic diseases | CPT/HCPCS: 87338 ==

== ENCOUNTER 2023-10-21 12:48 | Outpatient (AMB) | payer OTHER, SELFPAY ==
--- NOTE | 2023-10-21 12:52 | AM.OFFWIN_ITS ---
Intake Vital Signs 10/21/23 12:53 Height 5 ft 1 in Weight 180 lb BMI 34.0 BP 106/74 Blood Pressure Location Rt brachial Position Sitting Pulse 70 Pulse Source Pulse Oximeter Temp 98.1 F Temp Source Oral Pulse Oximetry (%) 98 Oxygen Delivery Method Room Air Intake Visit Reasons: lightheaded and dizziness Intake Note: pt c/o lightheaded and dizzy. Started this morning. w/ mild headache Patient Tobacco Use Status: Former Tobacco user Allergies amoxicillin [From Augmentin] Allergy (Intermediate, Verified 10/21/23 12:53) Itching clavulanic acid [From Augmentin] Allergy (Intermediate, Verified 10/21/23 12:53) Itching sulfadiazine Allergy (Unknown, Verified 10/21/23 12:53) rash Do you need a note to return to daycare/school/sports/work: No HPI HPI Comments History of Present Illness Details This is a 32-year-old female with a past medical history of anxiety, seasonal allergies and a recent workup for symptoms suspicious of H pylori presenting for evaluation of lightheadedness that she has experienced over the past 2-3 days. Patient comes to the walk-in today because when she experienced lightheadedness this morning she also had blurry vision in her peripheral vision only that lasted 20-30 minutes and was accompanied by nausea without vomiting. Patient does not wear glasses or contacts for vision and denies having any lightheadedness related to positional changes. 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 Patient states she currently has a frontal headache but denies having any fevers, chills, neck pain, current visual changes, shortness for breath, abdominal pain or chest pain. She denies any other visual changes including flashes, floaters, loss of vision or color changes. Patient's last normal menstrual period was on September 27, 2023. Additionally, patient denies taking any new medications or supplements. She denies any chance of currently and states she takes tests at home routinely. [facility] Medical History Hydronephrosis of right kidney Surgical History History of mandibular surgery History of appendectomy Family History Father Liver cancer Mother Lung cancer Mental health disorder Paternal Uncle Substance use disorder Social History Housing: Apartment Alcohol intake: current Alcohol intake frequency: a few times a month Patient Tobacco Use Status: Former Tobacco user Cigarettes Per Day: 8 e-Cigarette/Vaping Use: Never Used Second Hand Smoke Exposure: Yes service: No Current occupational status: employed Current occupation: [employer] [place] Current occupational exposures/hazards: Yes Cognitive needs: No Hearing needs: No Vision needs: No Review of Systems Const All systems reviewed & are unremarkable except as noted in HPI and below Denies chills, Denies fatigue, Denies fever(s), Denies malaise and Reports other (lightheadedness) Eyes Reports blurry vision (peripheral vison (not currently present)), Denies floaters, Denies loss of peripheral vision, Denies loss of vision, Denies other visual disturbances and Denies seeing flashes ENT Reports no additional complaints Card Reports no additional complaints Resp Reports no additional complaints GI Reports no additional complaints Reports no additional complaints Musc Reports no additional complaints Neuro Denies loss of vision Endo Denies fatigue Physical Exam Vital Signs: Last Vital Signs Temp 98.1 F 10/21/23 12:53 Pulse 70 10/21/23 12:53 BP 106/74 10/21/23 12:53 Pulse Ox 98 10/21/23 12:53 Oxygen Delivery Method Room Air 10/21/23 12:53 BMI result Body Mass Index 34.0 Const General: cooperative, healthy appearing, comfortable, well developed, alert, awake and anxious; No ill appearing Nutritional Appearance: well nourished Orientation/consciousness: patient oriented x3 Limitations: no limitations HEENT Head: Yes normal to inspection Ears: hearing grossly normal bilaterally, external ears normal, TM's normal bilaterally and EAC's normal General nose exam: Normal external nose present Face and sinus: Yes normal facial exam Mouth: Normal oral and palatal mucosa present Throat: Yes posterior oropharynx normal Eyes General: appearance normal, both eyes and all related structures Visual Cunha: normal visual cunha by confrontation Alignment and Position: alignment normal and position normal Eyelids: Yes eyelids normal Conjunctivae: conjunctivae normal Sclerae: sclerae normal Corneas: corneas normal Pupils: Equal, round and reactive pupils present, Pupils normal by confrontation and Pupil accommodation reflex normal EOM: EOMs intact bilaterally Direct Ophthalmoscopy: no photophobia Neck Neck: Yes normal visual inspection, Yes full ROM, Yes no lymphadenopathy and Yes no meningeal signs Resp Effort & Inspection: normal respiratory effort and able to speak in complete sentences Auscultation: clear to auscultation bilaterally Cardio Rate: regular rate Rhythm: regular rhythm GI Palpation (GI): Soft to palpation and nontender Skin General skin exam: no rashes or lesions noted Neuro General: patient oriented x3 and no meningeal signs Cranial nerves: Yes CN's II-XII intact bilaterally and Yes Equal, round and reactive pupils present Cognition (Neuro): normal cognition Gait exam (Neuro): Normal gait present Psych Appearance: grossly normal Mental Status: mental status grossly normal Affect: Anxious affect present Attitude: cooperative Insight: Good insight present (Psych) Judgement: Good judgement present (Psych) Assessment & Plan Assessment & Plan (1) Lightheadedness: Comment: Basic laboratories and TSH/free T4 will be obtained. Patient is neurologically intact. She will follow up with PCP as needed. Code(s): R42 - Dizziness and giddiness Plan: Laboratories as ordered; patient will follow-up with PCP for any concerns as related to laboratory results. Orders: Orders Basic Metabolic Panel Today R42 - Dizziness and giddiness Complete Blood Count Auto Diff Today R42 - Dizziness and giddiness TSH reflex Free T4 Today R42 - Dizziness and giddiness Coding Level of Care Code Est Pt Level 3 (10599) Diagnoses Lightheadedness R42 Time Spent (min) 20
[2023-10-21 12:53] VITALS: BP 106/74; PULSE 70; TEMP 36.7; O2SAT 98; BMI 34.0
== END 2023-10-21 13:31 | disposition home or self-care (01) ==
PROVIDERS: PCP Nurse Practitioner Family; Visit Provider Physician Assistant
DX: R42 Dizziness and giddiness (principal)
CPT/HCPCS: 99213

== ENCOUNTER 2023-10-21 13:19 | Outpatient (REF) | payer OTHER, SELFPAY ==
[2023-10-21 16:14] LABS: MANUAL DIFF FLAG NO
[2023-10-21 16:30] LABS: Basophils Percent Auto 0.5 % (0-2); Eosinophils Absolute Auto 0.3 X10*3/uL (0.0-0.4); Eosinophils Percent Auto 3.9 % (0-4); Hematocrit 39.9 % (37.0-47.0); Hemoglobin 13.6 g/dl (12.0-16.0); Imm Gran Abs Auto 0.02 X10*3/uL (0.00-0.03); Imm Gran Pct Auto 0.3 % (0.0-0.4); Lymphocytes Absolute Auto 1.8 X10*3/uL (1.2-4.9); Lymphocytes Percent Auto 24.3 % (20-40); Mean Corpuscular HGB Conc 34.1 g/dl (31.0-35.0); Mean Corpuscular Hemoglobin 30.4 pg (27.0-33.0); Mean Corpuscular Volume 89.3 fL (80.0-98.0); Mean Platelet Volume 11.4 fL (9.4-12.3); Monocytes Absolute Auto 0.5 X10*3/uL (0.1-1.2); Neutrophils Absolute Auto 4.9 x10*3/uL (2.0-8.3); Platelet Count 210 X10*3/uL (160-400); Red Blood Count 4.47 X10*6/uL (4.20-5.50); Red Cell Distribution Width 12.6 % (11.0-16.0); White Blood Count 7.5 X10*3/uL (4.8-10.8)
[2023-10-21 16:56] LABS: Anion Gap 10 (12-20); Blood Urea Nitrogen 11 mg/dL (9-16); Calcium 9.9 mg/dL (8.4-10.2); Carbon Dioxide 28 mmol/L (22-29); Chloride 105 mmol/L (96-108); Estimated Glomerular Filt Rate > 60; Glucose Random 105 mg/dL (60-115); Sodium 139 mmol/L (135-145)
[2023-10-21 17:15] LABS: TSH reflex Free T4 1.24 uIU/mL (0.32-4.0)
== END 2023-10-21 13:20 | disposition home or self-care (01) ==
LOC: HO.HMGCLDS 13:19
PROVIDERS: PCP Nurse Practitioner Family; Visit Provider Physician Assistant
DX: R42 Dizziness and giddiness (principal)
CPT/HCPCS: 36415; 80048; 84443; 85025

== ENCOUNTER 2023-10-25 15:45 | Outpatient (REF) | payer OTHER, SELFPAY | END 2023-10-25 15:46 | disposition home or self-care (01) | LOC: HO.LNP 15:45 | PROVIDERS: Visit Provider Nurse Practitioner Family | DX: R10.13 Epigastric pain (principal) | CPT/HCPCS: 87338 ==

== ENCOUNTER 2023-12-08 10:57 | Outpatient (AMB) | payer OTHER, SELFPAY ==
[2023-12-08 11:06] VITALS: BP 118/76; PULSE 102; O2SAT 98; BMI 35.1
--- NOTE | 2023-12-08 11:06 | MHC.PC.OV ---
Vital Signs 12/08/23 11:06 Height 5 ft 1 in Weight 186 lb BMI 35.1 BP 118/76 Blood Pressure Location Rt brachial Position Sitting Pulse 102 H Pulse Source Pulse Oximeter Pulse Oximetry (%) 98 Oxygen Delivery Method Room Air Intake Visit Reasons: PE Intake Note: pt is here for PE. Allergies sulfadiazine Allergy (Unknown, Verified 12/08/23 12:04) rash sulfamethoxazole [From Bactrim] Adverse Reaction (Mild, Verified 12/08/23 12:04) Rash trimethoprim [From Bactrim] Adverse Reaction (Mild, Verified 12/08/23 12:04) Rash Medication List - Last Reconciled 12/08/23 by AKOSUA Meadows Bacillus coagulans (Digestive Advantage Probiotics-Prebiotic) cells PO coenzyme Q10 (CoQ-10) 100 mg PO DAILY omega-3 fatty acids 500 mg PO DAILY omeprazole magnesium (Prilosec) 10 mg PO DAILY 90 days vit-ferrous sulfat-FA 27 mg iron- 0.8 mg tabs PO Tobacco use date assessed: 12/08/23 Dental Screening Dental Screen Date: 12/08/23 Did you have a dental visit in the last 12 months?: Yes Did you have a dental problem in the last 6 months where you did not have access to dental care?: No Was dental information given to patient?: Patient has dentist HPI PE HPI Details Pt is here for a PE. Will order labs. 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 Pt reports two episodes of peripheral blurred vision. She was and had a miscarriage and these episodes occurred around this time. She developed a headache after these episodes. ? migraine related to hormones. Pt has not had any further episodes of this. Will order head C for new onset headaches/migraines. [facility] Medical History Hydronephrosis of right kidney Surgical History History of mandibular surgery History of appendectomy Family History Father Liver cancer Mother Lung cancer Mental health disorder Paternal Uncle Substance use disorder Social History Housing: Apartment Alcohol intake: current Alcohol intake frequency: a few times a month Patient Tobacco Use Status: Former Tobacco user Cigarettes Per Day: 8 e-Cigarette/Vaping Use: Never Used Second Hand Smoke Exposure: Yes service: No Current occupational status: employed Current occupation: [employer] – [place] Current occupational exposures/hazards: Yes Cognitive needs: No Hearing needs: No Vision needs: No Questionnaire PHQ-9 Over the last 2 weeks, how often have you been bothered by any of the following problems? 1. Little interest or pleasure in doing things: several days 2. Feeling down, depressed, or hopeless: several days 3. Trouble falling or staying asleep, or sleeping too much: several days 4. Feeling tired or having little energy: several days 5. Poor appetite or overeating: several days 6. Feeling bad about yourself - or that you are a failure or have let yourself or your family down: several days 7. Trouble concentrating on things, such as reading the newspaper or watching television: several days 8. Moving or speaking so slowly that other people could have noticed. Or the opposite - being so fidgety or restless that you have been moving around a lot more than usual: not at all 9. Thoughts that you would be better off or of hurting yourself in some way: not at all Total score: 7 Depression Screening Interpretation: Negative Depression Screening Done: Yes 65092 - PHQ-9 Billing: Yes Source: Developed by Drs. Osei Hackett, Bina Killian, Sudhir Montgomery and colleagues, with an educational km from [employer]. Thrive Questionnaire Date Thrive assessed: 12/06/23 I am a: Patient What is your living situation today?: I have a steady place to live Within the past 12 months, did the food you bought not last and you didn't have the money to get more?: Never true Within the past 12 months, did you worry whether your food would run out before you got money to buy more?: Never true Do you have trouble paying for medicines?: No Do you have trouble getting transportation to medical appointments?: No Do you have trouble paying your heating and electricity bill?: No Do you have trouble taking care of your child, family member or friend?: No Do you have trouble with day-to-day activities such as bathing, preparing meals, shopping, managing finances, etc.?: No Are you interested in more education?: No Please select the resources that you would like help with: None Currently or been in a relationship where the following occur: No concerns reported THRIVE Score: 0 AUDIT C Alcohol Use Questionnaire (AUDIT-C) 1. How often do you have a drink containing alcohol?: Monthly or less 2. How many drinks containing alcohol do you have on a typical day when you are drinking?: 1 or 2 3. How often do you have six or more drinks on one occasion?: Never Total Score: 1 Score Reviewed/Action Taken: Yes ILSA-7 AMB Questionnaire ILSA-7 Date ILSA - 7 assessed: 12/08/23 Feeling nervous, anxious, or on edge: 1 = Several days Not being able to stop or control worryin = Several days Worrying too much about different things: 1 = Several days Trouble relaxin = Several days Being so restless that it is hard to sit still: 0 = Not at all Becoming easily annoyed or irritable: 0 = Not at all Feeling afraid as if something awful might happen: 1 = Several days Total ILSA-7 score (0-4 normal; 5-9 mild; 10-14 moderate; 15-21 severe): 5 Source: Developed by Drs. Osei Hackett, Bina Killian, Sudhir Montgomery and colleagues, with an educational km from [employer]. ILSA-7 Assessment Billing ILSA-7 Assessment Tool: ILSA-7 Assessment 73788 Review of Systems Const Denies chills and Denies fever(s) Eyes Denies blurry vision ENT Denies vertigo, Denies dizziness and Denies sore throat Card Denies chest pain at rest, Denies chest pain with activity, Denies diaphoresis, Denies dyspnea and Denies dyspnea on exertion Resp Denies cough, Denies dyspnea, Denies dyspnea on exertion and Denies wheezing GI Denies abdominal pain, Denies melena, Denies hematochezia, Denies constipation, Denies diarrhea and Denies loose stools Denies hematuria Musc Denies numbness and Denies tingling Skin/Breast Denies lesions Neuro Denies vertigo, Denies dizziness, Denies numbness and Denies tingling Psych Denies anxiety, Denies depression, Denies homicidal ideation, Denies suicidal ideation and Denies other (substance abuse) Aller/Immun Denies wheezing Physical exam (Primary Care) Vital Signs: Last Vital Signs Pulse 102 H 12/08/23 11:06 BP 118/76 12/08/23 11:06 Pulse Ox 98 12/08/23 11:06 Oxygen Delivery Method Room Air 12/08/23 11:06 BMI result Body Mass Index 35.1 Tobacco/Smoking Status: Tobacco use Status Tobacco use date assessed 12/08/23 12/08/23 11:09 Patient Tobacco Use Status Former Tobacco user 12/08/23 11:09 e-Cigarette/Vaping Use Never Used 12/08/23 11:09 PHQ-9: PHQ-9 Score PHQ-9: Total score 7 12/08/23 11:29 Depression Screening Interpretation: Negative Thrive Assessment: Date of Thrive Assessment Date Thrive assessed 12/06/23 12/08/23 11:09 Currently or been in a relationship where the following occur: No concerns reported Const General: cooperative Nutritional Appearance: obese Orientation/consciousness: patient oriented x3 HENMT Head: Yes normal to inspection, Yes normocephalic and Yes atraumatic Ears: TM's normal bilaterally Eyes General: appearance normal, both eyes and all related structures Alignment and Position: alignment normal and position normal Neck Neck: Yes normal visual inspection, Yes no lymphadenopathy and Yes supple Resp Effort & Inspection: normal respiratory effort Auscultation: clear to auscultation bilaterally Cardio Rate: regular rate Rhythm: regular rhythm Heart sounds: S1 normal heart sound present, S2 normal heart sound present and no murmurs GI Palpation (GI): Soft to palpation and nontender Auscultation: normal bowel sounds Skin Rashes: no rashes Neuro General: patient oriented x3, moves all extremities, no focal motor deficits and deep tendon reflexes 2+ bilaterally Romberg Test: Negative Psych Appearance: grossly normal Mental Status: mental status grossly normal Speech and movement: Normal speech and movement present Affect: normal affect Attitude: cooperative Thought process: Normal thought process present Thought content: Normal thought content present Insight: Good insight present (Psych) Judgement: Good judgement present (Psych) Assessment and Plan Assessment & Plan (1) Physical exam: Code(s): Z00.00 - Encounter for general adult medical examination without abnormal findings (2) New onset headache: Code(s): R51.9 - Headache, unspecified Plan: ct ordered Plan The patient agreed to the use of a hospital medical assistant for this encounter. Scribed for AKOSUA Rivas by Mary Schultz hospital medical assistant, on 12/08/2023 at 11:30 EST. Orders: Orders UA CC w/rflx Micro + Cult Today Z00.00 - Encounter for general adult medical examination without abnormal findings Lipid Panel Today Z00.00 - Encounter for general adult medical examination without abnormal findings CT head/brain wo IV con Today R51.9 - Headache, unspecified Complete Blood Count Auto Diff Today Z00.00 - Encounter for general adult medical examination without abnormal findings Comprehensive [place]. Panel Fast Today Z00.00 - Encounter for general adult medical examination without abnormal findings TSH reflex Free T4 Today Z00.00 - Encounter for general adult medical examination without abnormal findings Medications: New omeprazole magnesium (Prilosec) 10 mg PO DAILY 90 ea 0RF 90 days Coding Level of Care Code Est Pt Prev Care 18-39y(72718) Diagnoses Physical exam Z00.00 New onset headache R51.9 Additional Codes ILSA-7 Assessment Billing - ILSA-7 Assessment Tool: ILSA-7 Assessment 94587 ([id number])
== END 2023-12-08 12:07 | disposition home or self-care (01) ==
PROVIDERS: PCP Nurse Practitioner Family; Visit Provider Nurse Practitioner Family
DX: Z00.00 Encounter for general adult medical examination without abnormal findings (principal); R51.9 Headache, unspecified

== ENCOUNTER → 2023-12-08 10:57 | Outpatient (BNVA) | payer OTHER, SELFPAY | PROVIDERS: PCP Nurse Practitioner Family; Visit Provider Nurse Practitioner Family | DX: Z00.01 Encounter for general adult medical examination with abnormal findings (principal); R51.9 Headache, unspecified | CPT/HCPCS: 96127 ==

== ENCOUNTER 2023-12-21 16:01 | Outpatient (REF) | payer OTHER, SELFPAY ==
--- NOTE | ~2023-12-21 | CT_ITS ---
EXAMINATION: CT HEAD WITHOUT CONTRAST CLINICAL INFORMATION: Headache COMPARISON: None available. TECHNIQUE: Contiguous axial imaging was performed from the skull base to vertex without intravenous administration of contrast. This CT examination was performed using dose optimization techniques as appropriate, variously including the following: *Automated exposure control *Adjustment of mA and/or kV according to patient size (this includes techniques or standardized protocols for targeted exams where dose is matched to indication/reason for exam; i.e. extremities or head) *Use of iterative reconstruction technique DLP: 734 mGy-cm FINDINGS: No acute intracranial hemorrhage or infarct. The dewitt-white matter differentiation is preserved. No midline shift or hydrocephalus. No acute extra-axial fluid collections. The osseous structures are unremarkable. There is a circumscribed hypoattenuating lesion in the region of the pineal gland which measures up to 1.7 cm in AP dimensions. This lesion exerts some mass effect on the tectal plate and without evidence of cerebral aqueduct stenosis. There is suggestion of a small right quadrigeminal cistern lipoma. No orbital pathology. Partially opacified right maxillary sinus. The mastoid air cells are clear. CT/CT head/brain wo IV con IMPRESSION: -No evidence of acute intracranial hemorrhage or infarct. -Hypoattenuating lesion in the region of the pineal gland with mass effect on the tectal plate. No evidence for cerebral aqueduct stenosis or obstructive hydrocephalus. 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 Further evaluation with contrast enhanced MRI may be obtained if clinically warranted. 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 -Partially opacified right maxillary sinus. Electronically signed by: Ashley Marcum MD 01/06/2024 04:15 PM EDT
== END 2023-12-21 16:02 | disposition home or self-care (01) ==
LOC: HO.CT 16:01
PROVIDERS: PCP Nurse Practitioner Family; Visit Provider Nurse Practitioner Family
DX: R51.9 Headache, unspecified (principal)
CPT/HCPCS: 70450

== ENCOUNTER 2024-01-08 10:59 | Outpatient (AMB) | payer OTHER, SELFPAY ==
[2024-01-08 11:03] VITALS: BP 140/88; PULSE 88; BMI 34.6
--- NOTE | 2024-01-08 11:03 | MHC.OFFVIS ---
Vital Signs 01/08/24 11:03 Height 5 ft 1 in Weight 183 lb 3.266 oz BMI 34.6 BP 140/88 H Blood Pressure Location Lt brachial Position Sitting Pulse 88 Pulse Source Pulse Oximeter Intake Visit Reasons: Other specified endocrine disorders Intake Note: Patient present today for other specified endocrine disorder. 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 Required: No Accompanied by: Self / Same As Patient Allergies sulfadiazine Allergy (Unknown, Verified 01/08/24 11:07) rash sulfamethoxazole [From Bactrim] Adverse Reaction (Mild, Verified 01/08/24 11:07) Rash trimethoprim [From Bactrim] Adverse Reaction (Mild, Verified 01/08/24 11:07) Rash Medication List - Last Reconciled 01/08/24 by Naz Mcdowell MD Bacillus coagulans (Digestive Advantage Probiotics-Prebiotic) cells PO coenzyme Q10 (CoQ-10) 100 mg PO DAILY omega-3 fatty acids 500 mg PO DAILY omeprazole 20 mg PO DAILY 30 days vit-ferrous sulfat-FA 27 mg iron- 0.8 mg tabs PO HPI Comments Details: 33-year-old female coming in today for initial evaluation of pineal gland cyst. Patient denies any other medical history. She describes that in 07/11/2023 she had a miscarriage at 9 weeks which was managed with medical management as it was a silent miscarriage. 1 para 0 +1 She describes an episode of blurry vision with blurriness of peripheral vision that happened 2 weeks prior to this miscarriage, subsequently she had a similar episode in September of 2023. These were only 2 isolated episodes otherwise she does not have any blurry vision or diplopia. Investigations were done for this which led to a head CT 12/21/2023 that showed a cistern lipoma as well as a pineal gland cyst that appears like a benign cyst. She does not have any history of pituitary disorders. Headaches : chronic , mild if tired , frequency every other week , frontal feels like a band around head like tension headache, not worsened Nipple discharge just since was , only on hard stimulation Vision changes: blurry vision 2 weeks before diagnosis of miscaarige in June 2023 and second episode in September 2023 Has not seen eye doctor yet No diplopia . No nausea or vomiting Occasional lightheadedness intermittently Weight stable LMP : December 04 , 23 days cycles but last 2 cycles 32-34 days but was always regular before that No change in ring size or shoe size No temperature intolerance . Bowel movements are regular. No proximal muscle weakness , no easy bruising. Does have some chin hair, abdominal hair but not new Review of systems Constitutional: no fevers, chills or weight loss HEENT: no changes in vision Cardiac: No chest pain, discomfort or palpitations. Pulmonary: No SOB Physical exam General: sitting comfortably in no acute distress HEENT: normocephalic/atraumatic, EOM intact, gross visual cunha intact, moist oral mucosa Neck: supple, symmetrical, no thyromegaly , no dorsocervical or supraclavicular fat pads Cardiac: normal heart sounds Pulm: normal breath sounds B/L, no added breath sounds Abd: not distended, no tenderness, no abdominal striae Extremities: no edema, no signs of myxedema Neuro: AAO x3, Speech: normal, no facial droop, moving all 4 extremities [facility] Medical History (Updated 01/08/24 @ 11:47 by Naz Mcdowell MD) Blurry vision Pineal gland cyst Hydronephrosis of right kidney Surgical History History of mandibular surgery History of appendectomy Family History Father Liver cancer Mother Lung cancer Mental health disorder Paternal Uncle Substance use disorder Social History Housing: Apartment Alcohol intake: current Alcohol intake frequency: a few times a month Patient Tobacco Use Status: Former Tobacco user Cigarettes Per Day: 8 e-Cigarette/Vaping Use: Never Used Second Hand Smoke Exposure: Yes service: No Current occupational status: employed Current occupation: [employer] [place] Current occupational exposures/hazards: Yes Cognitive needs: No Hearing needs: No Vision needs: No Physical Exam Vital Signs: Last Vital Signs Pulse 88 01/08/24 11:03 BP 140/88 H 01/08/24 11:03 BMI result Body Mass Index 34.6 Results Reviewed Results Reviewed: Laboratory Tests 10/21/23 13:[address] HEAD WITHOUT CONTRAST 12/21/23 I reviewed the images myself, this is not the best imaging modality for imaging the pituitary, however no obvious pituitary lesion visualized. CLINICAL INFORMATION: Headache COMPARISON: None available. TECHNIQUE: Contiguous axial imaging was performed from the skull base to vertex without intravenous administration of contrast. This CT examination was performed using dose optimization techniques as appropriate, variously including the following: *Automated exposure control *Adjustment of mA and/or kV according to patient size (this includes techniques or standardized protocols for targeted exams where dose is matched to indication/reason for exam; i.e. extremities or head) *Use of iterative reconstruction technique DLP: 734 mGy-cm FINDINGS: No acute intracranial hemorrhage or infarct. The dewitt-white matter differentiation is preserved. No midline shift or hydrocephalus. No acute extra-axial fluid collections. The osseous structures are unremarkable. There is a circumscribed hypoattenuating lesion in the region of the pineal gland which measures up to 1.7 cm in AP dimensions. This lesion exerts some mass effect on the tectal plate and without evidence of cerebral aqueduct stenosis. There is suggestion of a small right quadrigeminal cistern lipoma. No orbital pathology. Partially opacified right maxillary sinus. The mastoid air cells are clear. CT/CT head/brain wo IV con IMPRESSION: -No evidence of acute intracranial hemorrhage or infarct. -Hypoattenuating lesion in the region of the pineal gland with mass effect on the tectal plate. No evidence for cerebral aqueduct stenosis or obstructive hydrocephalus. 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 Further evaluation with contrast enhanced MRI may be obtained if clinically warranted. 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 -Partially opacified right maxillary sinus. Electronically signed by: Ashley Marcum MD 01/06/2024 04:15 PM EDT Assessment & Plan Assessment & Plan (1) Blurry vision: Code(s): H53.8 - Other visual disturbances Category: Medical Plan: Patient with 2 episodes of blurry vision, with a history of missed miscarriage in June 2023, who was found to have a pineal gland cyst on her head CT in November 2023. She has chronic headaches but not significantly worsened and what she is describing looks more like a tension headache. She has regular periods her weight has been stable. She does complain of nipple discharge from her left nipple on hard stimulation but she has had history of piercings to the nipple and she had a recent miscarriage as well. Plus this is only unstimulated. Unlikely that she has any pituitary abnormality but I will check her prolactin level. We will also do an FSH, LH, estradiol free T4 and check her ACTH and cortisol. If these labs are unremarkable that I am not concerned about any pituitary lesion. She has an upcoming appointment with neurosurgery for evaluation of pineal gland cyst which would likely need monitoring. Given episodes of blurry vision, I am also placing an ophthalmology referral. 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 Plan: -check ACTH, cortisol, estradiol, prolactin, FSH, LH levels -ophthalmology referral placed -agree with neurosurgery referral Patient is agreeable with the plan and verbalized understanding. All questions were answered. Plan I spent 45 minutes in reviewing the record, seeing the patient and documenting in the medical record. Orders: Orders Free T4 (Free Thyroxine) Today H53.8 - Other visual disturbances Thyroid Stimulating Hormone Today H53.8 - Other visual disturbances Follicle Stimulating Hormone Today H53.8 - Other visual disturbances Cortisol Random Today H53.8 - Other visual disturbances Prolactin Today H53.8 - Other visual disturbances Estradiol Ultra Sensitive Today H53.8 - Other visual disturbances Lutenizing Hormone Today H53.8 - Other visual disturbances Adrenocorticotropic Hormone Today H53.8 - Other visual disturbances Referrals Ophthalmology Referral H53.8 - Other visual disturbances Coding Level of Care Code New Pt Level 4 (18097) Diagnoses Blurry vision H53.8 Time Spent (min) 45
== END 2024-01-08 11:56 | disposition home or self-care (01) ==
PROVIDERS: PCP Nurse Practitioner Family; Visit Provider Student in an Organized Health Care Education/Training Program
DX: H53.8 Other visual disturbances (principal)
CPT/HCPCS: 99204

== ENCOUNTER → 2024-01-08 10:59 | Outpatient (BNVA) | payer OTHER, SELFPAY | LOC: CF 14:45 | PROVIDERS: PCP Nurse Practitioner Family; Visit Provider Student in an Organized Health Care Education/Training Program ==

== ENCOUNTER 2024-01-09 07:18 | Outpatient (REF) | payer OTHER, SELFPAY ==
[2024-01-09 08:52] LABS: Cortisol Random 10.5 ug/dL
[2024-01-09 09:02] LABS: Free T4 (Free Thyroxine) 1.02 ng/dL (0.71-1.85); Thyroid Stimulating Hormone 1.96 uIU/mL (0.32-4.0)
[2024-01-11 02:34] LABS: Follicle Stimulating Hormone 6.8 mIU/mL; Lutenizing Hormone 3.2 mIU/mL
[2024-01-13 21:39] LABS: Adrenocorticotropic Hormone 22 pg/mL (6-50)
[2024-01-17 05:09] LABS: Estradiol Ultra Sensitive 38 pg/mL
== END 2024-01-09 07:19 | disposition home or self-care (01) ==
LOC: HO.LAB 07:18
PROVIDERS: PCP Nurse Practitioner Family; Visit Provider Student in an Organized Health Care Education/Training Program
DX: H53.8 Other visual disturbances (principal)
CPT/HCPCS: 36415; 82024; 82533; 82670; 83001; 83002; 84146; 84439; 84443

== ENCOUNTER 2024-01-13 14:47 | Outpatient (REF) | payer OTHER, SELFPAY ==
--- NOTE | ~2024-01-13 | MR_ITS ---
EXAMINATION: MR BRAIN WITHOUT AND WITH CONTRAST CLINICAL INFORMATION: Benign lipomatous neoplasm COMPARISON: CT head on 12/21/2023 TECHNIQUE: Multiplanar, multisequence MRI of the brain was obtained before and after the intravenous administration of 8.5 mL Gadavist. FINDINGS: No abnormal intracranial enhancement. No acute intracranial hemorrhage or infarct. Scattered and confluent periventricular and deep white matter T2/FLAIR hyperintensities, nonspecific however commonly seen with small vessel ischemic disease. T1 hypointense and T2 hyperintense lesion along the right quadrigeminal cistern which demonstrates CSF signal on all sequences compatible with a cyst. No midline shift or hydrocephalus. No acute extra-axial fluid collections. The osseous structures are unremarkable. 1.8 x 1.3 cm unilocular pineal gland cyst. There is mass effect on the tectal plate without stenosis of the cerebral aqueduct. The pituitary gland and remaining midline structures are unremarkable. No orbital pathology. Complete opacification of the right maxillary sinus. The remaining mastoid air cells are clear. MR/MR head/brain wo/w con IMPRESSION: -No acute intracranial abnormality. 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 No stenosis of the cerebral aqueduct 10 no hydrocephalus. -Right quadrigeminal cistern cyst. -Complete opacification of the right maxillary sinus. Electronically signed by: Ashley Marcum MD 01/14/2024 12:38 PM EDT
[2024-01-13] MEDS: gadobutroL 10 ML VIAL IVPUSH (15:48)
== END 2024-01-13 14:48 | disposition home or self-care (01) ==
LOC: HO.MRI 14:47
PROVIDERS: PCP Nurse Practitioner Family; Visit Provider Nurse Practitioner Family
DX: D17.79 Benign lipomatous neoplasm of other sites (principal); R51.9 Headache, unspecified; E34.8 Other specified endocrine disorders
CPT/HCPCS: 70553; A9585

== ENCOUNTER 2024-06-08 10:04 | Outpatient (AMB) | payer OTHER, SELFPAY ==
[2024-06-08 10:08] VITALS: BP 138/80; PULSE 88; TEMP 36.7; O2SAT 98; BMI 36.2
--- NOTE | 2024-06-08 10:08 | MHC.PC.OV ---
Vital Signs 06/08/24 10:08 Height 5 ft 1 in Weight 191 lb 8 oz BMI 36.2 BP 138/80 Blood Pressure Location Lt brachial Position Sitting Pulse 88 Pulse Source Pulse Oximeter Temp 98.0 F Temp Source Oral Pulse Oximetry (%) 98 Intake Visit Reasons: 6m follow up Intake Note: pt is here for 6 mon f/up Invoice Clerk Required: No Accompanied by: Self / Same As Patient Allergies sulfadiazine Allergy (Unknown, Verified 06/08/24 11:00) rash sulfamethoxazole [From Bactrim] Adverse Reaction (Mild, Verified 06/08/24 11:00) Rash trimethoprim [From Bactrim] Adverse Reaction (Mild, Verified 06/08/24 11:00) Rash Medication List - Last Reconciled 06/08/24 by JORGE Meadows-ANKIT Bacillus coagulans (Digestive Advantage Probiotics-Prebiotic) cells PO coenzyme Q10 (CoQ-10) 100 mg PO DAILY omega-3 fatty acids 500 mg PO DAILY omeprazole 20 mg PO DAILY 30 days vit-ferrous sulfat-FA 27 mg iron- 0.8 mg tabs PO Tobacco use date assessed: 06/08/24 Dental Screening Dental Screen Date: 06/08/24 Did you have a dental visit in the last 12 months?: Yes Did you have a dental problem in the last 6 months where you did not have access to dental care?: No Was dental information given to patient?: Patient has dentist HPI 6m follow up HPI Details Chief Complaint The patient presents with concerns of frequent headaches and is currently nine weeks . History of Present Illness The patient is a 33-year-old female presenting with frequent headaches and is currently nine weeks . These headaches, noted to occur with greater frequency during her , are manageable with rest and occur with visual auras. 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 The patient plans to consult with a neurologist for further evaluation of her headaches/brain imaging. Additional considerations include morning sickness associated with the early gestational period of her . The patient also has a history of anxiety and depression, which are presently under control. Social History - status: 9 weeks gestation. - Mental health: Anxiety and depression controlled without ideation concerns. Health Maintenance Review of Systems - Neurological: Reports frequent headaches, visual auras. denies any sonophobia but does have photop obia- : Reports morning sickness. - Mental Health: Denies suicidal ideation, denies homicidal ideation. -denies cp,sob - Physical Exam General: Cooperative, healthy appearing, comfortable, no acute distress and well developed Orientation: Patient oriented x3 Limitations: No limitations Head: Normal to inspection Ears: Hearing grossly normal bilaterally Nose: Normal external nose present Face and sinus: Normal facial exam Eyes: Appearance normal, both eyes and all related structures Neck: Normal visual inspection and Yes full ROM Respiratory: Normal respiratory effort and able to speak in complete sentences. Clear to auscultation bilaterally Cardiovascular: Regular rate and rhythm. Normal S1 and S2 GI: Normal to inspection. Soft to palpation and nontender Skin: No rashes or lesions noted Neuro: Patient oriented x3 Extremities: Normal to inspection Results Plan I addressed the headache concerns during her , noting her intention to consult a neurologist for further evaluation, given her history of a pineal gland cyst. For her ongoing , managing morning sickness and conducting lab work were recommended (has a OB). Her mental health appears stable, so no immediate adjustments are necessary. I stressed the importance of follow-up care and discussing aura symptoms with her neurologist. Discussion Notes I reviewed the frequent headaches the patient experiences and the need for neurological evaluation, given her past imaging results. We discussed monitoring the frequency of the headaches during her , the potential impact of the stress related to her symptoms, and the importance of consulting with her neurologist. Regarding her , the patient was advised on managing morning sickness and the necessity of scheduled lab work for ongoing monitoring. We also addressed her controlled anxiety and depression, affirming the stabilization of her mental health with ongoing care. Patient Instructions - Monitor headache frequency and severity, and seek a quiet space for relief when needed. - Schedule and attend the upcoming neurologist appointment to discuss headaches and aura. - Follow recommendations for managing morning sickness during . - Continue with current mental health strategies and report any changes in mood or ideation. - Complete lab tests as scheduled to monitor progress. [facility] Medical History Blurry vision Pineal gland cyst Hydronephrosis of right kidney Surgical History History of mandibular surgery History of appendectomy Family History Father Liver cancer Mother Lung cancer Mental health disorder Paternal Uncle Substance use disorder Social History Housing: Apartment Alcohol intake: current Alcohol intake frequency: a few times a month Patient Tobacco Use Status: Former Tobacco user Cigarettes Per Day: 8 e-Cigarette/Vaping Use: Never Used Second Hand Smoke Exposure: Yes service: No Current occupational status: employed Current occupation: [employer] [place] Current occupational exposures/hazards: Yes Cognitive needs: No Hearing needs: No Vision needs: No Questionnaire PHQ-9 Over the last 2 weeks, how often have you been bothered by any of the following problems? 1. Little interest or pleasure in doing things: not at all 2. Feeling down, depressed, or hopeless: not at all 3. Trouble falling or staying asleep, or sleeping too much: several days 4. Feeling tired or having little energy: more than half the days 5. Poor appetite or overeating: more than half the days 6. Feeling bad about yourself - or that you are a failure or have let yourself or your family down: not at all 7. Trouble concentrating on things, such as reading the newspaper or watching television: several days 8. Moving or speaking so slowly that other people could have noticed. Or the opposite - being so fidgety or restless that you have been moving around a lot more than usual: not at all 9. Thoughts that you would be better off or of hurting yourself in some way: not at all Total score: 6 Depression Screening Interpretation: Negative Depression Screening Done: Yes 33065 - PHQ-9 Billing: Yes Source: Developed by Drs. Osei Hackett, Bina Killian, Sudhir Montgomery and colleagues, with an educational km from [employer] logo. Thrive Questionnaire Date Thrive assessed: 06/08/24 I am a: Patient What is your living situation today?: I have a steady place to live Within the past 12 months, did the food you bought not last and you didn't have the money to get more?: Never true Within the past 12 months, did you worry whether your food would run out before you got money to buy more?: Never true Do you have trouble paying for medicines?: No Do you have trouble getting transportation to medical appointments?: No Do you have trouble paying your heating and electricity bill?: No Do you have trouble taking care of your child, family member or friend?: No Do you have trouble with day-to-day activities such as bathing, preparing meals, shopping, managing finances, etc.?: No Are you currently unemployed and looking for a job?: No Are you interested in more education?: No Please select the resources that you would like help with: None Currently or been in a relationship where the following occur: No concerns reported THRIVE Score: 0 AUDIT C Alcohol Use Questionnaire (AUDIT-C) 1. How often do you have a drink containing alcohol?: Never 3. How often do you have six or more drinks on one occasion?: Never Total Score: 0 Score Reviewed/Action Taken: Yes ILSA-7 AMB Questionnaire ILSA-7 Date ILSA - 7 assessed: 06/08/24 Feeling nervous, anxious, or on edge: 1 = Several days Not being able to stop or control worryin = Several days Worrying too much about different things: 1 = Several days Trouble relaxin = Several days Being so restless that it is hard to sit still: 0 = Not at all Becoming easily annoyed or irritable: 0 = Not at all Feeling afraid as if something awful might happen: 1 = Several days Total ILSA-7 score (0-4 normal; 5-9 mild; 10-14 moderate; 15-21 severe): 5 Source: Developed by Drs. Osei Hackett, Bina Killian, Sudhir Montgomery and colleagues, with an educational km from [employer] logo. ILSA-7 Assessment Billing ILSA-7 Assessment Tool: ILSA-7 Assessment 81672 Physical exam (Primary Care) Vital Signs: Last Vital Signs Temp 98.0 F 06/08/24 10:08 Pulse 88 06/08/24 10:08 BP 138/80 06/08/24 10:08 Pulse Ox 98 06/08/24 10:08 BMI result Body Mass Index 36.2 Tobacco/Smoking Status: Tobacco use Status Tobacco use date assessed 06/08/24 06/08/24 10:10 Patient Tobacco Use Status Former Tobacco user 06/08/24 10:10 e-Cigarette/Vaping Use Never Used 06/08/24 10:10 PHQ-9: PHQ-9 Score PHQ-9: Total score 6 06/08/24 10:10 Depression Screening Interpretation: Negative Thrive Assessment: Date of Thrive Assessment Date Thrive assessed 06/08/24 06/08/24 10:10 Currently or been in a relationship where the following occur: No concerns reported Coding Level of Care Code Est Pt Level 3 (96363) Diagnoses Frequent headaches R51.9 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 E34.8 Anxiety and depression F41.9; F32.A Additional Codes ILSA-7 Assessment Billing - ILSA-7 Assessment Tool: ILSA-7 Assessment 03064 ([id number]) PHQ-9 - 84278 - PHQ-9 Billing: Yes ([id number]) Assessment & Plan Assessment & Plan (1) Frequent headaches: Code(s): R51.9 - Headache, unspecified Category: Medical (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
--- OUTSIDE RECORDS SUMMARY | 2024-06-08 11:38 | XMS_ITS | Continuity of Care Document ---
[facility] Organization [facility] [employer] [employer] [facility] Address [address] [place] [address], [address], [place] [address]- Care Team Providers Care Tare Weigher Name Role Phone Ld YANG, Mirtha Frausto Primary Care Physician Encounter [facility] [id number] Date(s): 05/25/24 - 06/01/24 [facility] [employer] [address], [address] [place] [address] Attending Physician: Estefani Bay MD Referring Physician: Mirtha Jaffe NP Encounter Type: Office Visit Allergies, Adverse Reactions, Alerts Substance Criticality Severity Reaction Reaction Severity Status Bactrim Active Medications docusate sodium 100 mg/25 mL oral syrup 15 mL = 60 mg, By Mouth, Every 4 hours, PRN for constipation, # 480 mL, 0 Refills, Maintenance, 07/31/10 11:44:23 AM EDT, Syrup Start Date: 07/31/10 Status: Ordered Quantity: 480.0 Unit: mL Repeat number: 1 Folate Forte By Mouth, Daily, 0 Refills, Maintenance, 11/17/23 7:13:00 PM EDT, Partial fill upon patient request if the prescription is for a schedule II opioid drug. Start Date: 11/17/23 Status: Ordered Repeat number: 1 Natural Cycles Family Planning Natural Cycles Family Planning, See Instructions, # 1 each, Refills 0, Tot. Refills 0, Maintenance,Please allow for Natural Cycles contraception support for indication of undesired fertility., 02/01/24 4:30:00 PM EST, Supply Start Date: 02/01/24 Status: Ordered Quantity: 1.0 Unit: each Repeat number: 1 [place]-3 oral capsule 0 Refills, Maintenance, 11/17/23 7:14:00 PM EDT, Partial fill upon patient request if the prescription is for a schedule II opioid drug. Start Date: 11/17/23 Status: Ordered Repeat number: 1 Multivitamins By Mouth, Daily, 0 Refills, Maintenance, 11/17/23 7:13:00 PM EDT, Partial fill upon patient request if the prescription is for a schedule II opioid drug. Start Date: 11/17/23 Status: Ordered Repeat number: 1 Problem List Condition Confirmation Course Effective Dates Status Health St atus Informant Obese class I Confirmed Active Radiology * Event Display: DESMOND OB Transvaginal Authored Date: [id number] Obstetrics Report Signed Final 05/26/2024 5:58 AM Patient Info ID: [id number] SHEILA Giordano.O.B.: TOCCHIO 05/25/2024 8:08 AM FMRN: Name: ate: [id number] 1 (33 y) (F) Performed By Attending: Anthony Freitas MD Referred By: Fang Sebastian DO Performed By: Camelia Mendoza RDMS Ref Address: [facility] Exam Location:[address] Orders ------ Service(s) [place] [address] P Indications Code Early stage of Z34.90 OB History : 2 Term: 0 Evaluation Number Of Fetuses: 1 Preg. Location: In utero Heart Rate(bpm): 125 Cardiac Activity: Present Amniotic Fluid AISHWARYA FV: Early gestation Comment: Subchorionic bleed seen adjacent to gest sac simran [id number]. Gestational Age LMP: 6w 2d Date: 04/11/24 FRANCY: 01/16/25 Best: 6w 2d Det. By: LMP (04/11/24) FRANCY: 01/16/25 Biometry -------- CRL: 5.8 mm G.Age: 6w 3d FRANCY: 01/15/2025 Cervix Uterus Adnexa Cervix: Length: 2.97 cm Appears closed Right Ovary Size(cm): 3.27 x 1.84 x 1.74 Vol (ml): 5.48 Cyst measuring (cm)=1.2x1.2x1.2cm. Increased flow at periphery?cl cyst. Left Ovary Size(cm): 3.98 x 1.87 x 2.26 Vol (ml): 8.81 Cyst measuring (cm)= 1.3x1.5x1.6cm. Clear cyst simran 2.5x2.3x1.7cm.no increased flow seen. [place] No fluid seen Comment Vaginal scanning was done. Impression Transvaginal scan performed. Uterus appears anteverted. IUP noted with FHR 125 bpm. Yolk sac seen and normal. There is a small anechoic area adjacent to the gestational that likely represents a subchorionic hematoma, measures 7x5x3 mm. The right ovary contains a corpus luteal cyst. The left ovary contains two simple appearing cyst, likely physiologic. No free fluid. Final FRANCY based on LMP c/w today's scan 01/16/2025 Anthony Freitas MD Electronically Signed Final Report 05/26/2024 5:58 AM * Event Display: DESMOND OB Transvaginal Authored Date: Please click on pdf link to open report * Event Display: DESMOND OB Transvaginal Authored Date: Patient Care team information Care Team Personnel Name: Mirtha Jaffe NP Position: [facility] - Associate Professional Provider Member Role: PCP Address: [address] [place] [address] Telecom: Care Team Related Persons Name: JOY MOBLEY Name: AVE PAZ Insurance Providers Guarantor name: Health Plan Information #: 1 Payer: [facility]UE BENEFIT [facility] Member Number: [id number] Policy Number: NA Group Number: [id number] Health Plan Information #: 2 Payer: BLUE BENEFIT [facility] PP Member Number: [id number] Policy Number: NA Group Number: NA
--- OUTSIDE RECORDS SUMMARY | 2024-06-08 11:38 | XMS_ITS | Continuity of Care Document ---
Author Organization [facility] Address [address] [place] [address], [address], [place] [address]- Care Team Providers Care Bingo Manager Name Role Phone Mirtha Jaffe NP Primary Care Physician Encounter [facility] [id number] Date(s): 04/13/24 - 05/13/24 [facility] [place] [address], [address] [place], [place] [address] Encounter Type: Triage Allergies, Adverse Reactions, Alerts Substance Criticality Severity [...] Quantity: 1.0 Unit: each Repeat number: 1 [place]-3 oral capsule 0 Refills, Maintenance, 11/17/23 7:14:00 [...] atus Informant Obese class I Confirmed Active Patient Care team information Care Team Personnel Name: Ld YANG, Mirtha Frausto Position: [facility] - Associate Professional Provider Member Role: PCP Address: [address] [place] [address] Telecom: Care Team Related Persons Name: JOY MOBLEY Name: AVE PAZ Insurance Providers Guarantor name: CARLY Health Plan Information #: 1 Payer: BLUE BENEFIT [employer] PPO Member Number: CARLY Policy Number: NA Group Number: [id number]
--- OUTSIDE RECORDS SUMMARY | 2024-06-08 11:38 | XMS_ITS | Continuity of Care Document ---
Author Organization [facility] Address [address] [place] [address], [address] [address]- Care Team Providers Care Rounding Machine Operator Name Role Phone Mirtha Jaffe NP Primary Care Physician Encounter [facility] [id number] Date(s): 05/04/24 - 06/03/24 [facility] [place] [address], [address] [place] [address] Encounter Type: Triage Allergies, Adverse Reactions, Alerts [...] Quantity: 1.0 Unit: each Repeat number: 1 [place]-3 oral capsule 0 Refills, Maintenance, 11/17/23 7:14:00 [...] Personnel Name: Ld YANG, Mirtha Frausto Position: [facility] - Associate Professional Provider Member Role: PCP Address: [address] [place] [address] Telecom: Care Team Related Persons Name: JOY MOBLEY Name: AVE PAZ Insurance Providers Guarantor name: CARLY Health Plan Information #: 1 Payer: BLUE BENEFIT [employer] PPO Member Number: CARLY Policy Number: CARLY Group Number: NA
== END 2024-06-08 11:07 | disposition home or self-care (01) ==
LOC: HO.HMCC 10:05
PROVIDERS: PCP Nurse Practitioner Family; Visit Provider Nurse Practitioner Family
DX: R51.9 Headache, unspecified (principal); D17.79 Benign lipomatous neoplasm of other sites; E34.8 Other specified endocrine disorders; F41.9 Anxiety disorder, unspecified; F32.A Depression, unspecified

== ENCOUNTER → 2024-06-08 10:04 | Outpatient (BNVA) | payer OTHER, SELFPAY | PROVIDERS: PCP Nurse Practitioner Family; Visit Provider Nurse Practitioner Family | DX: R51.9 Headache, unspecified (principal); D17.79 Benign lipomatous neoplasm of other sites; E34.8 Other specified endocrine disorders; F41.9 Anxiety disorder, unspecified; F32.A Depression, unspecified | CPT/HCPCS: 96127 ==

== ENCOUNTER 2024-08-13 08:06 | Outpatient (REF) | payer OTHER, SELFPAY ==
[2024-08-13 11:05] LABS: MANUAL DIFF FLAG NO
[2024-08-13 11:11] LABS: Basophils Percent Auto 0.3 % (0-2); Eosinophils Absolute Auto 0.3 X10*3/uL (0.0-0.4); Eosinophils Percent Auto 2.4 % (0-4); Hematocrit 33.1 % (37.0-47.0); Hemoglobin 11.5 g/dl (12.0-16.0); Imm Gran Abs Auto 0.09 X10*3/uL (0.00-0.03); Imm Gran Pct Auto 0.7 % (0.0-0.4); Lymphocytes Absolute Auto 1.8 X10*3/uL (1.2-4.9); Lymphocytes Percent Auto 13.9 % (20-40); Mean Corpuscular HGB Conc 34.7 g/dl (31.0-35.0); Mean Corpuscular Hemoglobin 30.6 pg (27.0-33.0); Mean Platelet Volume 11.1 fL (9.4-12.3); Monocytes Absolute Auto 0.7 X10*3/uL (0.1-1.2); Monocytes Percent Auto 5.3 % (2-11); Neutrophils Absolute Auto 9.7 x10*3/uL (2.0-8.3); Neutrophils Percent Auto 77.4 % (45-73); Platelet Count 212 X10*3/uL (160-400); Red Blood Count 3.76 X10*6/uL (4.20-5.50); Red Cell Distribution Width 13.2 % (11.0-16.0); White Blood Count 12.6 X10*3/uL (4.8-10.8)
[2024-08-13 11:20] LABS: Appearance Urine Clear; Color Urine Yellow; Glucose Urine UA Negative (Negative); Leukocyte Esterase Urine Small (1+) (Negative); Nitrite Urine Negative (Negative); Specific Gravity - Urine 1.025 (1.005-1.025); UMIC TRIGGER UACC YES; Urine Blood Negative (Negative); Urine Ketones Negative (Negative); Urine Protein Negative (Neg-Trace)
[2024-08-13 11:28] LABS: Bacteria Urine Trace (None Seen); Hyaline Casts Urine 0-2 /LPF (0-2); RBC Urine 0-2 /HPF (0-2); UACC Culture Trigger YES
[2024-08-13 11:41] LABS: Alanine Aminotransferase 25 U/L (0-31); Albumin Level 3.6 g/dL (3.5-5.0); Alkaline Phosphatase 71 U/L (39-117); Anion Gap 13 (12-20); Aspartate Amino Transferase 38 U/L (5-31); Bilirubin Total 0.3 mg/dL (0.0-1.0); Blood Urea Nitrogen 11 mg/dL (9-16); Calcium 8.9 mg/dL (8.4-10.2); Carbon Dioxide 21 mmol/L (22-29); Chloride 108 mmol/L (96-108); Cholesterol 170 mg/dL (<200); Estimated Glomerular Filt Rate > 60; Glucose Fasting 90 mg/dL (60-99); HDL Cholesterol 49 mg/dL (>40); LDL Cholesterol Calculated 96 mg/dL (<100); Potassium 3.9 mmol/L (3.3-5.1); Sodium 138 mmol/L (135-145); Total Protein 6.9 g/dL (6.5-8.0); Triglycerides 127 mg/dL (<150)
[2024-08-13 11:42] LABS: TSH reflex Free T4 1.41 uIU/mL (0.32-4.0)
== END 2024-08-13 08:07 | disposition home or self-care (01) ==
LOC: HO.HMGCLDS 08:06
PROVIDERS: PCP Nurse Practitioner Family; Visit Provider Nurse Practitioner Family
DX: Z00.00 Encounter for general adult medical examination without abnormal findings (principal); Z13.6 Encounter for screening for cardiovascular disorders
CPT/HCPCS: 36415; 80053; 80061; 81001; 84443; 85025; 87086

== ENCOUNTER 2024-08-16 07:18 | Outpatient (AMB) | payer OTHER, SELFPAY ==
--- NOTE | 2024-08-16 07:49 | A.OFFPC_ITS ---
Intake Visit Reasons: neuro referral concern Allergies sulfadiazine Allergy (Unknown, Verified 06/08/24 11:00) rash sulfamethoxazole [From Bactrim] Adverse Reaction (Mild, Verified 06/08/24 11:00) Rash trimethoprim [From Bactrim] Adverse Reaction (Mild, Verified 06/08/24 11:00) Rash Tobacco use date assessed: 06/08/24 Dental Screening Dental Screen Date: 06/08/24 HPI neuro referral concern HPI Details History of Present Illness The patient is a 33-year-old female presenting with a follow-up for brain imagin g findings and monitoring. In the fall, imaging detected a pineal gland cyst and a lipoma within the right quadrigeminal cistern. Neurological and neurosurgical consultations have determined her not to be a surgical candidate. She inquires about the necessary follow-up, focusing on the imaging and evaluation plan for these lesions. She has recently confirmed her and exhibited slight leukocytosis. The patient denies symptoms such as urinary complaints, respiratory issues, fever, or hypertension and is interested in further evaluation and management of her leukocytosis within the context of her . Review of Systems - Neurological: Reports no associated ne urological symptoms related to brain lesions. - General: Reports recent . - Hematologic: Reports leukocytosis; den ies associated symptoms such as fever or chills. - Genitourinary: Denies urinary issues. - Respiratory: Denies breathing difficul ties. - Cardiovascular: Denies elevated blood pressure. Plan The patient is advised to continue consultations with her neurologist, including her planned visit on August 25, for continual evaluation of the pineal gland cyst and quadrigeminal cistern lipoma. Collaboration with neurology will establish the appropriate imaging schedule. Her and associated leukocytosis will be monitored through regular obstetric care. Intervention plans will be adjusted as necessary based on progression or symptom development. She should report any health changes or emerging concerns promptly. Discussion Notes During the visit, we discussed the benign nature of the identified pineal gland cyst and quadrigeminal cistern lipoma, emphasizing the current stance that surgical intervention is not indicated. The patient understands the rationale behind periodic monitoring. Concerning her , we reviewed the implications of leukocytosis and agreed to observational management given the absence of symptoms. She is aware of her upcoming neurology appointment and will keep me updated on any changes or new developments. We discussed the importance of regular monitoring and maintaining open communication about her evolving health status. Patient Instructions - Keep the appointment with the neurolog ist on August 25. - Follow up with obstetric care to monit or and leukocytosis. - Report any new symptoms, concerns, or health changes immediately. - Maintain regular communication regardi ng test results and imaging follow-up plans. [facility] Medical History Blurry vision Pineal gland cyst Hydronephrosis of right kidney Surgical History History of mandibular surgery History of appendectomy Family History Father Liver cancer Mother Lung cancer Mental health disorder Paternal Uncle Substance use disorder Social History Housing: Apartment Alcohol intake: current Alcohol intake frequency: a few times a month Patient Tobacco Use Status: Former Tobacco user Cigarettes Per Day: 8 e-Cigarette/Vaping Use: Never Used Second Hand Smoke Exposure: Yes service: No Current occupational status: employed Current occupation: [employer] [place] Current occupational exposures/hazards: Yes Cognitive needs: No Hearing needs: No Vision needs: No Questionnaire Thrive Questionnaire Date Thrive assessed: 06/01/24 I am a: Patient What is your living situation today?: I have a steady place to live Within the past 12 months, did the food you bought not last and you didn't have the money to get more?: Never true Within the past 12 months, did you worry whether your food would run out before you got money to buy more?: Never true Do you have trouble paying for medicines?: No Do you have trouble getting transportation to medical appointments?: No Do you have trouble paying your heating and electricity bill?: No Do you have trouble taking care of your child, family member or friend?: No Do you have trouble with day-to-day activities such as bathing, preparing meals, shopping, managing finances, etc.?: No Are you currently unemployed and looking for a job?: No Are you interested in more education?: No Please select the resources that you would like help with: None Currently or been in a relationship where the following occur: No concerns reported THRIVE Score: 0 ILSA-7 AMB Questionnaire ILSA-7 Date ILSA - 7 assessed: 06/08/24 Source: Developed by Drs. Osei Hackett, Bina Killian, Sudhir Montgomery and colleagues, with an educational km from [place]. Physical exam (Primary Care) Tobacco/Smoking Status: Tobacco use Status Tobacco use date assessed 06/08/24 06/08/24 10:10 Patient Tobacco Use Status Former Tobacco user 06/08/24 10:10 e-Cigarette/Vaping Use Never Used 06/08/24 10:10 Thrive Assessment: Date of Thrive Assessment Date Thrive assessed 06/01/24 08/15/24 16:58 Currently or been in a relationship where the following occur: No concerns reported Telehealth Telehealth Telehealth Platform: [facility] Location of provider rendering services: practice address Location of patient: address on file Patient Identification confirmed using: Name, : Yes Telehealth method: video Patient verbally consented to treatment: Yes Patient verbally consented to billing insurance company: Yes Patient informed of any privacy concerns related to visit: Yes Minutes spent on Phone/Video with Pt.: 10 Coding Level of Care Code Tele Est Pt Level 3 (50104) Diagnoses Leukocytosis D72.829 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 Orders: Orders 2 Complete Blood Count Auto Diff Today D72.829 - Elevated white blood cell count, unspecified Comprehensive Met. Panel Today D72.829 - Elevated white blood cell count, unspecified
== END 2024-08-16 08:54 | disposition home or self-care (01) ==
LOC: HO.HMCC 07:18
PROVIDERS: PCP Nurse Practitioner Family; Visit Provider Nurse Practitioner Family
DX: D72.829 Elevated white blood cell count, unspecified (principal); D17.79 Benign lipomatous neoplasm of other sites; E34.8 Other specified endocrine disorders

== ENCOUNTER → 2024-08-16 07:18 | Outpatient (BNVA) | payer OTHER, SELFPAY | PROVIDERS: PCP Nurse Practitioner Family; Visit Provider Nurse Practitioner Family | DX: Z13.89 Encounter for screening for other disorder (principal) ==

== ENCOUNTER 2024-08-30 11:08 | Outpatient (REF) | payer OTHER, SELFPAY ==
[2024-08-30 13:26] LABS: MANUAL DIFF FLAG NO
[2024-08-30 13:35] LABS: Basophils Percent Auto 0.3 % (0-2); Eosinophils Absolute Auto 0.2 X10*3/uL (0.0-0.4); Hematocrit 32.9 % (37.0-47.0); Hemoglobin 11.2 g/dl (12.0-16.0); Imm Gran Pct Auto 0.9 % (0.0-0.4); Lymphocytes Absolute Auto 1.7 X10*3/uL (1.2-4.9); Lymphocytes Percent Auto 14.6 % (20-40); Mean Corpuscular Hemoglobin 30.3 pg (27.0-33.0); Mean Corpuscular Volume 88.9 fL (80.0-98.0); Mean Platelet Volume 11.1 fL (9.4-12.3); Monocytes Absolute Auto 0.4 X10*3/uL (0.1-1.2); Monocytes Percent Auto 3.7 % (2-11); Neutrophils Percent Auto 78.5 % (45-73); Platelet Count 198 X10*3/uL (160-400); Red Cell Distribution Width 13.4 % (11.0-16.0); White Blood Count 11.5 X10*3/uL (4.8-10.8)
[2024-08-30 14:00] LABS: Alanine Aminotransferase 20 U/L (0-31); Albumin Level 3.6 g/dL (3.5-5.0); Alkaline Phosphatase 76 U/L (39-117); Anion Gap 11 (12-20); Aspartate Amino Transferase 22 U/L (5-31); Bilirubin Total 0.4 mg/dL (0.0-1.0); Blood Urea Nitrogen 10 mg/dL (9-16); Calcium 9.6 mg/dL (8.4-10.2); Carbon Dioxide 22 mmol/L (22-29); Chloride 108 mmol/L (96-108); Estimated Glomerular Filt Rate > 60; Glucose Random 102 mg/dL (60-115); Potassium 3.8 mmol/L (3.3-5.1); Sodium 137 mmol/L (135-145); Total Protein 6.8 g/dL (6.5-8.0)
== END 2024-08-30 11:09 | disposition home or self-care (01) ==
LOC: HO.HMGCLDS 11:08
PROVIDERS: PCP Nurse Practitioner Family; Visit Provider Nurse Practitioner Family
DX: D72.829 Elevated white blood cell count, unspecified (principal)
CPT/HCPCS: 36415; 80053; 85025

== ENCOUNTER 2024-11-01 15:18 | Outpatient (AMB) | payer OTHER, SELFPAY ==
--- OUTSIDE RECORDS SUMMARY | 2024-10-27 23:59 | XMS_ITS | Continuity of Care Document ---
Author Organization [facility] Address [address] [place] [address]- [facility] [phone] Care Team Providers Care Svp Monetization Name Role Phone Willy YANG, Yair Santos Primary Care Physician Encounter [facility] Date(s): 09/27/24 - 10/27/24 [facility] [address] [place] [address] Attending Physician: Siddhartha English Admitting Physician: Siddhartha English Referring Physician: AdmtrSiddhartha Encounter Type: Triage Allergies, Adverse Reactions, Alerts Substance Criticality Severity Reaction Reaction Severity Status Bactrim Active Immunizations Given and Recorded Vaccine Date Status Refusal Reason tetanus/diphtheria/pertussis, acel(Tdap) 10/26/24 Given Medications aspirin 81 mg oral tablet, chewable 162 mg, 2, tablet, Chew, Daily, continue until 2 weeks , # 60 tablet, Refills 8, Maintenance, 08/25/24 11:03:00 AM EDT, Partial fill upon patient request if the prescription is for a scheduleII opioid drug. Start Date: 08/25/24 Status: Ordered Quantity: 60.0 Unit: tablet Repeat number: 1 docusate sodium 100 mg/25 mL oral syrup [...] Date: 11/17/23 Status: Ordered Repeat number: 1 indomethacin 25 mg oral capsule 1 capsule = 25 mg, By Mouth, Every 6 hours, PRN for pain, # 12 capsule, 0 Refills, Maintenance, 09/13/24 2:34:00 PM EDT, Capsule, [facility], 154.94, cm, 08/29/24 14:41:00 EDT, Height, 90, kg, 09/13/24 12:31:00 EDT, Dry Weight Start Date: 09/13/24 Stop Date: 09/15/24 Status: Ordered Quantity: 12.0 Unit: capsule Repeat number: 1 Natural Cycles Family Planning Natural Cycles Family Planning, See Instructions, # 1 each, Refills 0, Tot. Refills 0, Maintenance,Please allow for Natural Cycles contraception support for indication of undesired fertility., 02/01/24 4:30:00 PM EST, Supply Start Date: 02/01/24 Status: Ordered Quantity: 1.0 Unit: each Repeat number: 1 [place]-3 oral capsule 0 Refills, Maintenance, 11/17/23 7:14:00 [...] Date: 11/17/23 Status: Ordered Repeat number: 1 Probiotic Formula By Mouth, Daily, 0 Refills, Maintenance, 07/06/24 1:18:00 PM EDT, Partial fill upon patient request if the prescription is for a schedule II opioid drug. Start Date: 07/06/24 Status: Ordered Repeat number: 1 Prometrium 200 mg oral capsule 1 capsule = 200 mg, Vaginally, Daily, # 30 capsule, 4 Refills, Acute 04/08/25 10:31:00 AM EST, 09/06/24 10:31:00 AM EDT, [facility], Partial fill upon patient request if the prescription is for a schedule II opioid drug., 154.94, cm, 08/29/24 14:41:00 EDT, Height, 90.2, kg, 08/29/24 14:41:00 EDT, Dry Weight Start Date: 09/06/24 Stop Date: 04/08/25 Status: Ordered Quantity: 30.0 Unit: capsule Repeat number: 5 Indications: Cervical shortening, second trimester; Problem List Condition Confirmation Course Effective Dates Status Health St atus Informant Anxiety Confirmed Active Pap smear abnormality of cervix with ASCUS favoring benign Confirmed Active Rojas cerclage present Confirmed Active Premature cervical dilation in second trimester Confirmed Active Pineal gland cyst Confirmed Active Elevated blood pressure reading without diagnosis of hypertension Confirmed Active h/o Kidney stones Confirmed Active Migraine headache with aura Confirmed Active Obese class I Confirmed Active Short cervix in second trimester, antepartum Confirmed Active Social History Social History Type Response Smoking Status Former smoker, quit more than 30 days ago; Other: quit smoking May 2023; entered on: 06/10/24 Sex Sex Representation Female (finding) Patient Care team information Care Team Personnel Name: Willy YANG , Yair Santos Position: Reference Physician Member Role: PCP Address: [address] [place] [address] Telecom: Care Team Related Persons Name: JOY MOBLEY Name: AVE PAZ Insurance Providers Guarantor name: CARLY Health Plan Information #: 1 Payer: BLUE BENEFIT BBA PPO Payer Identifier: CARLY Member Number: [id number] Group Number: [id number] Subscriber Identifier: [id number] Relationship to Subscriber: self Coverage Type: BLUE CROSS/BLUE SHIELD Coverage Verification Date: CARLY Telecom: CARLY Address:
--- OUTSIDE RECORDS SUMMARY | 2024-10-28 23:59 | XMS_ITS | Continuity of Care Document ---
Author Organization [facility] Address [address] [place] [address]- Care Team Providers Care Supervisor Floor Assembly Name Role Phone Willy YANG, Yair Santos Primary Care Physician Encounter [facility] Date(s): 07/06/24 - 10/28/24 [facility] [address] [address] Attending Physician: Victorina Bryant CNM Admitting Physician: Victorina Bryant CNM Referring Physician: Oumou Madison CNM Encounter Type: Pre-OutPatient One Time Allergies, Adverse Reactions, Alerts Substance Criticality Severity [...] Refills, Maintenance, 09/13/24 2:34:00 PM EDT, Capsule, [facility], 154.94, cm, 08/29/24 14:41:00 EDT, Height, [...] Quantity: 1.0 Unit: each Repeat number: 1 [place]-3 oral capsule 0 Refills, Maintenance, 11/17/23 7:14:00 [...] 10:31:00 AM EST, 09/06/24 10:31:00 AM EDT, [facility], Partial fill upon patient request if [...] Care team information Care Team Personnel Name: Yair Aguilera NP Position: Reference Physician Member Role: PCP Address: [address] [place] [address] Telecom: Care Team Related Persons Name: JOY MOBLEY Name: AVE PAZ Insurance Providers Guarantor name: CARLY Health Plan Information #: 1 Payer: BLUE BENEFIT BBA PPO Payer Identifier: CARLY Member Number: [id number] Group Number: [id number] Subscriber Identifier: [id number] Relationship to Subscriber: self Coverage Type: BLUE CROSS/BLUE SHIELD Coverage Verification Date: NA Telecom: NA Address:
[2024-11-01 15:27] VITALS: BP 144/70; PULSE 117; O2SAT 97; BMI 37.2
--- NOTE | 2024-11-01 15:27 | AM.OFFWIN_ITS ---
Intake Vital Signs 11/01/24 15:27 Height 5 ft 1 in Weight 197 lb BMI 37.2 BP 144/70 H Blood Pressure Location Lt brachial Position Sitting Pulse 117 H Pulse Source Pulse Oximeter Pulse Oximetry (%) 97 Oxygen Delivery Method Room Air Intake Visit Reasons: EP Eye blister/stye Intake Note: presents with painful and tingling rash above left eye into eyebrow appearing today s/p left eye pain yesterday Patient Tobacco Use Status: Former Tobacco user Patient : Yes Allergies sulfadiazine Allergy (Unknown, Verified 11/01/24 15:29) rash sulfamethoxazole (From Bactrim) Adverse Reaction (Mild, Verified 11/01/24 15:29) Rash trimethoprim (From Bactrim) Adverse Reaction (Mild, Verified 11/01/24 15:29) Rash Do you need a note to return to daycare/school/sports/work: Yes HPI HPI Comments History of Present Illness Details History - The patient is a 33-year-old female pr esenting with vesicular rash on left upper eyelid. - Vesicles appeared today, with pain sta rting on the lower left eyelid yesterday. - Erythromycin ointment was applied befo re noticing the vesicles. - Vesicles are fluid-filled with burning pain, not itchy. - Denies fever, changes in vision, or bl urry vision. 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 Skin: Vesicular rash (4 individual vesicles) with an erythematous base on the left upper eyelid Neuro: Patient oriented x3 [facility] Medical History Blurry vision Pineal gland cyst Hydronephrosis of right kidney Surgical History History of mandibular surgery History of appendectomy Family History Father Liver cancer Mother Lung cancer Mental health disorder Paternal Uncle Substance use disorder Social History Housing: Apartment Alcohol intake: current Alcohol intake frequency: a few times a month Patient Tobacco Use Status: Former Tobacco user Cigarettes Per Day: 8 e-Cigarette/Vaping Use: Never Used Second Hand Smoke Exposure: Yes Patient : Yes service: No Current occupational status: employed Current occupation: [employer] Current occupational exposures/hazards: Yes Cognitive needs: No Hearing needs: No Vision needs: No Review of Systems Const All systems reviewed & are unremarkable except as noted in HPI and below Physical Exam Vital Signs: Last Vital Signs Pulse 117 H 11/01/24 15:27 BP 144/70 H 11/01/24 15:27 Pulse Ox 97 11/01/24 15:27 Oxygen Delivery Method Room Air 11/01/24 15:27 BMI result Body Mass Index 37.2 Assessment & Plan Assessment & Plan (1) Shingles of eyelid: Code(s): B02.39 - Other herpes zoster eye disease Plan: Plan Patient was informed and verbally consented to the use of an ambient scribe for clinic note documentation during this visit. Herpes Zoster Ophthalmicus - Sent culture but appears to be shingles in V1 dermatome. - The patient is advised to contact her blow machine tender starch spraying for an immediate appointment to verify the condition and ensure it has not spread to the eyes. - Treatment with valacyclovir initiated, noting it is not contraindicated in . - The patient was advised to seek emergency care if any vision changes occur. - Advised she should inform her service center coordinator about the condition and the treatment with valacyclovir. Orders: Orders Viral Culture Today B02.39 - Other herpes zoster eye disease Medications: New valacyclovir 1,000 mg PO Q8H 21 tabs 0RF 7 days Coding Level of Care Code Est Pt Level 3 (76523) Diagnoses Shingles of eyelid B02.39
== END 2024-11-01 16:18 | disposition home or self-care (01) ==
PROVIDERS: PCP Nurse Practitioner Family; Visit Provider Physician Assistant
DX: B02.39 Other herpes zoster eye disease (principal)

== ENCOUNTER 2024-11-01 15:18 | Outpatient (REF) | payer OTHER, SELFPAY ==
[2024-11-15 10:24] LABS: Varicella Zoster Source EYELID
== END 2024-11-01 15:19 | disposition home or self-care (01) ==
LOC: HO.LNP 15:18
PROVIDERS: PCP Nurse Practitioner Family; Visit Provider Physician Assistant
DX: B02.39 Other herpes zoster eye disease (principal); H57.12 Ocular pain, left eye; R21 Rash and other nonspecific skin eruption
CPT/HCPCS: 87252; 87254; 87255; 87529; 87798

== ENCOUNTER 2024-11-02 10:59 | Outpatient (REF) | payer OTHER, SELFPAY | END 2024-11-02 11:00 | disposition home or self-care (01) | LOC: HO.LAB 10:59 | PROVIDERS: Visit Provider Physician Assistant | DX: Z13.89 Encounter for screening for other disorder (principal) ==

== ENCOUNTER 2025-02-18 06:31 | Outpatient (REF) | payer OTHER, SELFPAY ==
--- OUTSIDE RECORDS SUMMARY | 2025-02-17 23:59 | XMS_ITS | Continuity of Care Document ---
Author Organization [facility] [employer] [facility] Address [address] [place] [address], [address] [place] [address]- Care Team Providers Care Supervisor Refractory Products Name Role Phone Willy YANG, Yair Santos Primary Care Physician En[facility] [id number] Date(s): 10/20/24 - 02/17/25 [facility] [address] [facility] [place], [place] [address] Attending Physician: Santos PRITCHETT, Celia Bourne Encounter Type: Pre Office Visit Allergies, Adverse Reactions, Alerts Substance Criticality Severity Reaction Reaction Severity Status Bactrim Skin rash Active Immunizations Given and Recorded Vaccine Date Status Refusal Reason RSV vaccine, preF A-preF B, recombinant 12/22/24 G iven tetanus/diphtheria/pertussis, acel(Tdap) 10/26/24 Given Medications famotidine 10 mg oral tablet 1 tablet = 10 mg, By Mouth, Once, # 60 tablet, 0 Refills, Maintenance, 01/05/25 4:41:00 PM EDT, Tablet, Partial fill upon patient request if the prescription is for a schedule II opioid drug. Start Date: 01/05/25 Status: Ordered Medication Dispense Status: Completed Quantity: 60.0 Unit: tablet Total Allowed Fills: 1 Fills Dispensed: 0 ferrous sulfate 325 mg oral tablet 1 tablet = 325 mg, By Mouth, Daily, # 90 tablet, 0 Refills, Maintenance, 01/14/25 9:52:00 AM EDT, Tablet, [facility], Partial fill upon patient request if the prescription is for a schedule II opioid drug., 154, cm, 01/14/25 8:07:00 EDT, Height, 99.3, kg, 01/11/25 13:42:00 EDT, Dry Weight Start Date: 01/14/25 Status: Ordered Medication Dispense Status: Completed Quantity: 90.0 Unit: tablet Total Allowed Fills: 1 Fills Dispensed: 0 Multivitamins By Mouth, Daily, 0 Refills, Maintenance, 11/17/23 7:13:00 PM EDT, Partial fill upon patient request if the prescription is for a schedule II opioid drug. Start Date: 11/17/23 Status: Ordered Medication Dispense Status: Completed Total Allowed Fills: 1 Fills Dispensed: 0 Probiotic Formula By Mouth, Daily, 0 Refills, Maintenance, 07/06/24 1:18:00 PM EDT, Partial fill upon patient request if the prescription is for a schedule II opioid drug. Start Date: 07/06/24 Status: Ordered Medication Dispense Status: Completed Total Allowed Fills: 1 Fills Dispensed: 0 Problem List Condition Confirmation Course Effective Dates Status H ealth Status Informant Anxiety Confirmed Active Pap smear abnormality of cervix with ASCUS favoring benign Confirmed Active Premature cervical dilation in second trimester Confirmed Active Pineal gland cyst Confirmed Active Elevated blood pressure reading without diagnosis of hypertension Confirmed Active Carrier of group B Streptococcus Confirmed Active Shingles Confirmed Active h/o Kidney stones Confirmed Active Migraine headache with aura Confirmed Active Obese class I Confirmed Active Confirmed Active Short cervix in second trimester, antepartum Confirmed Active Social History Social History Type Response Sexual Gender identity: Fem marvin. Preferred pronoun: She/Her/Hers. Smoking Status Former smoker, quit more than 30 days ago; Other: quit smoking May 2023; entered on: 06/10/24 Sex Sex Representation Female (finding) Patient Care team information Care Team Personnel Name: Yair Aguilera NP Position: Reference Physician Member Role: PCP Address: [address] [place] [address] Telecom: Care Team Related Persons Name: JOY MOBLEY Name: SHEILA PAZ Name: AVE PAZ Insurance Providers Guarantor name: CARLY Health Plan Information #: 1 Payer: BLUE BENEFIT BBA PPO Payer Identifier: NA Member Number: [id number] Group Number: [id number] Subscriber Identifier: [id number] Relationship to Subscriber: self Coverage Type: BLUE CROSS/BLUE SHIELD Coverage Verification Date: Telecom: NA Address: NA
[2025-02-18 11:15] LABS: MANUAL DIFF FLAG NO
[2025-02-18 11:21] LABS: Hematocrit 37.1 % (37.0-47.0); Hemoglobin 12.0 g/dl (12.0-16.0); Imm Gran Abs Auto 0.02 X10*3/uL (0.00-0.03); Imm Gran Pct Auto 0.3 % (0.0-0.4); Lymphocytes Absolute Auto 2.6 X10*3/uL (1.2-4.9); Mean Corpuscular HGB Conc 32.3 g/dl (31.0-35.0); Mean Corpuscular Hemoglobin 28.2 pg (27.0-33.0); Mean Corpuscular Volume 87.3 fL (80.0-98.0); NRBC Abs Auto 0.000 X10*3/uL (0.0-0.012); NRBC Pct Auto 0.0 /100WBC (0.0-0.2); Platelet Count 268 X10*3/uL (160-400); Red Blood Count 4.25 X10*6/uL (4.20-5.50); White Blood Count 7.3 X10*3/uL (4.8-10.8)
[2025-02-18 11:52] LABS: Alanine Aminotransferase 19 U/L (0-31); Albumin Level 4.3 g/dL (3.5-5.0); Alkaline Phosphatase 113 U/L (39-117); Anion Gap 11 (12-20); Aspartate Amino Transferase 27 U/L (5-31); Blood Urea Nitrogen 13 mg/dL (9-16); Calcium 9.3 mg/dL (8.4-10.2); Carbon Dioxide 25 mmol/L (22-29); Chloride 109 mmol/L (96-108); Cholesterol 136 mg/dL (<200); Estimated Glomerular Filt Rate > 60; HDL Cholesterol 32 mg/dL (>40); Iron 41 mcg/dL (30-160); Percent Iron Saturation 18 % (15-50); Potassium 4.0 mmol/L (3.3-5.1); Sodium 141 mmol/L (135-145); Total Iron Binding Capacity 229 mcg/dL (228-428); Total Protein 7.7 g/dL (6.5-8.0); Triglycerides 160 mg/dL (<150); Unsaturated Iron Binding 188 ug/dL
[2025-02-18 12:03] LABS: Ferritin 62 ng/mL (10-122)
== END 2025-02-18 06:32 | disposition home or self-care (01) ==
LOC: HO.HMGCLDS 06:31
PROVIDERS: PCP Nurse Practitioner Family; Visit Provider Nurse Practitioner Family
DX: Z00.00 Encounter for general adult medical examination without abnormal findings (principal); Z13.0 Encounter for screening for diseases of the blood and blood-forming organs and certain disorders involving the immune mechanism; Z13.6 Encounter for screening for cardiovascular disorders; Z13.29 Encounter for screening for other suspected endocrine disorder; R58 Hemorrhage, not elsewhere classified
CPT/HCPCS: 36415; 80053; 80061; 82306; 82728; 83540; 84443; 85025

== ENCOUNTER 2025-02-21 13:26 | Outpatient (AMB) | payer OTHER, SELFPAY ==
[2025-02-21 13:27] VITALS: BP 128/90; PULSE 74; RESP 16; O2SAT 99; BMI 37.4
--- NOTE | 2025-02-21 13:27 | MHC.PC.OV ---
Vital Signs 02/21/25 13:27 Height 5 ft 1 in Weight 198 lb BMI 37.4 BP 128/90 H Blood Pressure Location Lt brachial Position Sitting Respiration 16 Pulse 74 Pulse Source Pulse Oximeter Pulse Oximetry (%) 99 Oxygen Delivery Method Room Air Intake Visit Reasons: PE Hair Or Beauty Salon Manager Required: No Accompanied by: Self / Same As Patient Allergies sulfadiazine Allergy (Unknown, Verified 02/21/25 14:30) rash sulfamethoxazole (From Bactrim) Adverse Reaction (Mild, Verified 02/21/25 14:30) Rash trimethoprim (From Bactrim) Adverse Reaction (Mild, Verified 02/21/25 14:30) Rash Medication List - Last Reconciled 02/21/25 by JORGE Meadows-ANKIT aspirin (Adult Aspirin Regimen) 162 mg PO DAILY Bacillus coagulans (Digestive Advantage Probiotics-Prebiotic) cells PO erythromycin 1 appl ophthalmic (eye) DAILY vit-ferrous sulfat-FA 27 mg iron- 0.8 mg tabs PO progesterone micronized 200 mg PO BEDTIME valacyclovir 1,000 mg PO Q8H 7 days Tobacco use date assessed: 02/21/25 Dental Screening Dental Screen Date: 02/21/25 Did you have a dental visit in the last 12 months?: Yes Did you have a dental problem in the last 6 months where you did not have access to dental care?: No Was dental information given to patient?: Patient has dentist HPI PE HPI Details History of Present Illness The patient is a 34 year old individual presenting for a physical exam. The patient is a new mother who gave in December and reports doing well . Recent laboratory results were reportedly impressive. Health Maintenance - The patient is here for a physical exam. - Recent labs were noted to be fairly impressive. 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 - Employment: The patient is on leave from work for approximately 6 months. Review of Systems - Cardiovascular: Denies chest pain or shortness of breath. - Gastrointestinal: Denies abdominal pain, blood in stool, constipation, or diarrhea. - Psychiatric: Denies suicidal or homicidal ideation. Physical Exam General: Cooperative, healthy appearing, comfortable, no acute distress and well developed Orientation: Patient oriented x3 Limitations: No limitations Head: Normal to inspection Ears: Hearing grossly normal bilaterally Nose: Normal external nose present Face and sinus: Normal facial exam Eyes: Appearance normal, both eyes and all related structures Neck: Normal visual inspection and Yes full ROM Respiratory: Normal respiratory effort and able to speak in complete sentences. Clear to auscultation bilaterally Cardiovascular: Regular rate and rhythm. Normal S1 and S2 GI: Normal to inspection. Soft to palpation and nontender Skin: No rashes or lesions noted Neuro: Patient oriented x3 Extremities: Normal to inspection Results - Labs: Recent labs were reported as fairly impressive. Plan 1. htn: will have her take her BP at home and send me values. Discussion Notes Patient Instructions [facility] Medical History Blurry vision Pineal gland cyst Hydronephrosis of right kidney Surgical History H/O: History of mandibular surgery History of appendectomy Family History Father Liver cancer Mother Lung cancer Mental health disorder Paternal Uncle Substance use disorder Social History Housing: Apartment Alcohol intake: current Alcohol intake frequency: a few times a month Patient Tobacco Use Status: Former Tobacco user Cigarettes Per Day: 8 e-Cigarette/Vaping Use: Never Used Second Hand Smoke Exposure: Yes service: No Current occupational status: employed Current occupation[place] [employer] [place] Current occupational exposures/hazards: Yes Cognitive needs: No Hearing needs: No Vision needs: No Questionnaire PHQ-9 Over the last 2 weeks, how often have you been bothered by any of the following problems? 1. Little interest or pleasure in doing things: not at all 2. Feeling down, depressed, or hopeless: not at all 3. Trouble falling or staying asleep, or sleeping too much: several days 4. Feeling tired or having little energy: more than half the days 5. Poor appetite or overeating: more than half the days 6. Feeling bad about yourself - or that you are a failure or have let yourself or your family down: not at all 7. Trouble concentrating on things, such as reading the newspaper or watching television: several days 8. Moving or speaking so slowly that other people could have noticed. Or the opposite - being so fidgety or restless that you have been moving around a lot more than usual: not at all 9. Thoughts that you would be better off or of hurting yourself in some way: not at all Total score: 6 Depression Screening Interpretation: Negative Depression Screening Done: Yes 68720 - PHQ-9 Billing: Yes Source: Developed by Drs. Osei Hackett, Bina Killian, Sudhir Montgomery and colleagues, with an educational km from [employer]. Thrive Questionnaire Date Thrive assessed: 06/01/24 I am a: Patient What is your living situation today?: I have a steady place to live Within the past 12 months, did the food you bought not last and you didn't have the money to get more?: Never true Within the past 12 months, did you worry whether your food would run out before you got money to buy more?: Never true Do you have trouble paying for medicines?: No Do you have trouble getting transportation to medical appointments?: No Do you have trouble paying your heating and electricity bill?: No Do you have trouble taking care of your child, family member or friend?: No Do you have trouble with day-to-day activities such as bathing, preparing meals, shopping, managing finances, etc.?: No Are you currently unemployed and looking for a job?: No Are you interested in more education?: No Please select the resources that you would like help with: None Currently or been in a relationship where the following occur: No concerns reported THRIVE Score: 0 ILSA-7 AMB Questionnaire ILSA-7 Date ILSA - 7 assessed: 02/21/25 Source: Developed by Drs. Osei Hackett, Bina Killian, Sudhir Montgomery and colleagues, with an educational km from [employer]. Physical exam (Primary Care) Vital Signs: Last Vital Signs Pulse 74 02/21/25 13:27 Resp 16 02/21/25 13:27 BP 128/90 H 02/21/25 13:27 Pulse Ox 99 02/21/25 13:27 Oxygen Delivery Method Room Air 02/21/25 13:27 BMI result Body Mass Index 37.4 Tobacco/Smoking Status: Tobacco use Status Tobacco use date assessed 02/21/25 02/21/25 13:28 Patient Tobacco Use Status Former Tobacco user 02/21/25 13:28 e-Cigarette/Vaping Use Never Used 02/21/25 13:28 PHQ-9: PHQ-9 Score PHQ-9: Total score 6 02/21/25 13:56 Depression Screening Interpretation: Negative Thrive Assessment: Date of Thrive Assessment Date Thrive assessed 06/01/24 02/21/25 13:28 Currently or been in a relationship where the following occur: No concerns reported Coding Level of Care Code Est Pt Prev Care 18-39y(76823) Diagnoses Physical exam Z00.00 Additional Codes PHQ-9 - 80273 - PHQ-9 Billing: Yes ([id number]) Assessment & Plan Assessment & Plan (1) Physical exam: Code(s): Z00.00 - Encounter for general adult medical examination without abnormal findings Category: Medical Plan . Orders: Orders Complete Blood Count Auto Diff 02/18/25 Z00.00 - Encounter for general adult medical examination without abnormal findings Comprehensive Sawyer. Panel Fast 02/18/25 Z00.00 - Encounter for general adult medical examination without abnormal findings TSH reflex Free T4 02/18/25 Z00.00 - Encounter for general adult medical examination without abnormal findings Lipid Panel 02/18/25 Z00.00 - Encounter for general adult medical examination without abnormal findings UA CC w/rflx Micro + Cult 02/13/25 Z00.00 - Encounter for general adult medical examination without abnormal findings Vitamin D 25-OH Total 02/18/25 Z00.00 - Encounter for general adult medical examination without abnormal findings
== END 2025-02-21 14:27 | disposition home or self-care (01) ==
LOC: HO.HMCC 13:26
PROVIDERS: PCP Nurse Practitioner Family; Visit Provider Nurse Practitioner Family
DX: Z00.00 Encounter for general adult medical examination without abnormal findings (principal)

== ENCOUNTER → 2025-02-21 13:26 | Outpatient (BNVA) | payer OTHER, SELFPAY | PROVIDERS: PCP Nurse Practitioner Family; Visit Provider Nurse Practitioner Family | DX: Z00.00 Encounter for general adult medical examination without abnormal findings (principal) | CPT/HCPCS: 96127 ==

== ENCOUNTER 2025-03-15 11:04 | Outpatient (REF) | payer OTHER, SELFPAY ==
--- NOTE | ~2025-03-15 | MR_ITS ---
EXAMINATION: MR BRAIN WITHOUT THEN WITH IV CONTRAST CLINICAL INFORMATION: HEADACHES F/U PINEAL CYST COMPARISON: Brain MRI on January 13, 2024 TECHNIQUE: Multiplanar, multisequence MRI of the brain was obtained before and after the intravenous administration of 10 ml contrast gadolinium Gadavist. FINDINGS: Brain parenchyma: No shift of midline structures. No evidence of acute infarct, parenchymal hemorrhage or abnormal parenchymal enhancement. Multiple scattered nonenhancing T2/FLAIR hyperintensities in the white matter of bilateral cerebral hemispheres, more numerous in bilateral frontal lobes, are similar to December 2023. Ventricles/extra-axial spaces: No hydrocephalus. No extra-axial fluid collection. Small cyst in the right ambient cistern resulting in local mass effect on the medial aspect of the right temporal lobe is unchanged from 2023. Pineal gland region: Known pineal gland cyst measures 1.5 x 1.1 cm on the sagittal plane (13), similar to prior re-measurements of 1.6 x 1.2 cm in the same plane. On the axial plane, this pineal gland cyst measures 1.5 x 1.4 cm (8:), similar to prior re-measurements of 1.6 x 1.5 cm on the same axial plane. There is a small amount of T2 hypointensity on the dependent portion of the intracystic content, likely representing debris. Similar mild mass effect on the tectal plate. Extracranial structures: Arterial flow voids in the skull base are preserved. Heterogeneous content completely opacifies the right maxillary sinus, similar to 202. Minimal mucosal thickening of the ethmoid air cells and left maxillary sinus. Bilateral mastoid air cells are clear. MR/MR head/brain wo/w con IMPRESSION: 1. No acute intracranial findings. 2. Essentially unchanged pineal gland cyst. 3. Essentially unchanged white matter changes. 4. Chronic opacification of the right maxillary sinus. Electronically signed by: Eddie Velazco MD 03/15/2025 01:35 PM [facility]
== END 2025-03-15 11:05 | disposition home or self-care (01) ==
LOC: HO.MRI 11:04
PROVIDERS: Visit Provider Nurse Practitioner Family
DX: R51.9 Headache, unspecified (principal)
CPT/HCPCS: 70553; A9585

== ENCOUNTER → 2025-03-15 11:13 | Outpatient (BNV) | payer OTHER, SELFPAY | PROVIDERS: Visit Provider Radiology Body Imaging | DX: R51.9 Headache, unspecified (principal); E34.8 Other specified endocrine disorders | CPT/HCPCS: 70553 ==